=== PATIENT | female | born 1950 | race Caucasian/White ===

== ENCOUNTER 2021-07-07 00:01 | Inpatient (IN) | payer OTHER, SELFPAY ==
[2021-07-06 23:59] VITALS: BP 132/84; PULSE 110; RESP 25; TEMP 36.4; O2SAT 97
[2021-07-07] VITALS (106 sets, daily range): BP systolic 83–153; BP diastolic 49–95; PULSE 56–112; RESP 14–31; TEMP 36.7; O2SAT 95–100; BMI 28.0
--- NOTE | ~2021-07-07 | US_ITS ---
US retroperitoneal comp 07/12/2021 10:31 Procedure: Realtime transabdominal ultrasound of the kidneys and bladder. Indication: Renal failure Comparison: No prior studies for comparison. Findings: There is a hyperechoic area in the right kidney measuring 6 mm, possibly nonobstructing ron al stone. Recommend correlation with CT as clinically indicated. There is a left renal cyst measuring 1.5 cm. The right kidney measures 8.2 cm and left kidney measures 8.3 cm. Bladder within normal gee its. Impression: 1: Hyperechoic area in the right kidney, possibly renal stone. Consider correlation with CT. No hydro nephrosis. Reviewed, dictated and finalized at location A. Impression: 1: Hyperechoic area in the right kidney, possibly renal stone. Consider correla tion with CT. No hydronephrosis.
--- NOTE | ~2021-07-07 | XR_ITS ---
EXAMINATION: XR chest 1V portable DATE: 07/07/2021 01:03 INDICATION: Cough and shortness of breath. TECHNIQUE: A single frontal view of the chest was obtained. COMPARISON: None. FINDINGS: There is mild scarring at the lung apices. There are airspace opacities in right perihilar region. There is mild atelectasis versus scarring at the lung bases. No pneumothorax or pleural effus ion. The heart size is normal. Median sternotomy wires and mediastinal surgical clips are seen, likel y from prior coronary artery bypass grafting. IMPRESSION: 1. Airspace opacities in right perihilar region, consistent with pneumonia. 2. Mild scarring at the lung apices and mild atelectasis versus scarring at the lung bases. Reviewed, dictated and finalized at location A.
--- NOTE | ~2021-07-07 | NM_ITS ---
EXAMINATION: NM pulmonary perfusion DATE: 07/08/2021 12:37 INDICATION: Shortness of breath. TECHNIQUE: 5.5 mCi Tc-99m MAA was administered intravenously for perfusion images. Scintigraphic zuly ges of the chest were obtained. COMPARISON: Chest single view 07/07/2021 FINDINGS: Perfusion images show large defects in the basilar lower lobes, left worse than right.. IMPRESSION: 1. Nondiagnostic (intermediate probability for pulmonary embolism). Reviewed, dictated and finalized at location A.
--- NOTE | 2021-07-07 00:04 | ECG_ITS ---
Measurements Intervals [place] Rate: 109 P: 74 IA: 184 QRS: 81 QRSD: 110 T: 58 QT: 360 QTc: 487 Interpretive Statements SINUS TACHYCARDIA BORDERLINE ST-T WAVE ABNORMALITY- INF/LAT LEADS BASELINE ARTIFACT- I, II, III, AVR, AVL, AVF, V1-V6 ABNORMAL ECG Electronically Signed On 07-07-2021 5:23:34 CDT by Wei Richardson D.O.
--- NOTE | 2021-07-07 00:14 | ED.GENADULT ---
HPI - General Adult General Chief complaint: Shortness of Breath/Dyspnea Stated complaint: Shortness of breath Time Seen by Provider: 07/07/21 00:03 Source: RN notes reviewed History of Present Illness HPI narrative: Patient presents emergency department from home via EMS for shortness of breath. Patient has a history of COPD is normally on 3 L nasal cannula. When EMS arrived the patient was found to be satting in the 70s on her nebulizer treatment. Patient states she began to feel short of breath yesterday with a cough this been nonproductive she denies any fevers or chills chest pain abdominal pain nausea vomiting patient states she has had both of her Covid vaccination patient was given a breathing treatment and Solu-Medrol in route by EMS Related Data Allergies Allergy/AdvReac Type Severity Reaction Status Date / Time milk Allergy Vomiting Verified 07/07/21 00:14 quinidine Allergy Unknown Verified 07/07/21 00:14 Review of Systems Review of Systems: Gen.: Denies fevers or chills ENT: Denies congestion Respiratory: See HPI CV: Denies chest pain or palpitations GI: Denies abdominal pain nausea, emesis or diarrhea Musculoskeletal: Denies back pain or muscle pain Neuro: Denies numbness, tingling, weakness or focal weakness Skin: Denies rash Except as documented, all other systems reviewed and negative [facility] Past Medical History Medical History (Updated 07/07/21 @ 02:59 by Jermaine Roland DO) CHF (congestive heart failure) Chronic kidney disease, stage 4 (severe) COPD (chronic obstructive pulmonary disease) Social History Social History (Updated 07/07/21 @ 00:21 by Jermaine Roland DO) Smoking status: Former smoker Exam Narrative: APPEARANCE: Moderate respiratory stress sitting upright HEENT: Normocephalic, atraumatic OMM RESPIRATORY: Moderate respiratory distress and upright in bed speaking short phrases wheezing throughout the bilateral lung burkett decreased breath sounds in the bases CARDIOVASCULAR: Regular rate and rhythm without murmurs rubs or gallops. ABDOMINAL: Soft, nontender, nondistended, no rebound or guarding MUSCULOSKELETAl: Moves all extremities. No clubbing, cyanosis or edema. Bilateral calves soft and nontender NEURO: Awake and alert. Following commands, speech normal, no focal deficits SKIN:: Warm, dry. Normal Color PSYCHIATRIC: Normal affect/mood, Course Course Emergency Course: Patient's breathing has improved on BiPAP repeat lung exam still does show wheezing throughout lung burkett Called and discussed with Dr. Carreon presentation work-up agrees with admission at this time Discussed with patient and family results of workup and diagnosis. Discussed need for admission. Patient and family understand and agree to current treatment plan Vital Signs Vital signs: Vital Signs Temperature 97.6 F 07/06/21 23:59 Pulse Rate 110 H 07/06/21 23:59 Respiratory Rate 25 H 07/06/21 23:59 Blood Pressure 132/84 07/06/21 23:59 Pulse Oximetry 97 07/06/21 23:59 Temperature 97.6 F 07/06/21 23:59 Pulse Rate 78 07/07/21 02:45 Respiratory Rate 18 07/07/21 02:45 Blood Pressure 110/66 07/07/21 02:16 Pulse Oximetry 97 07/07/21 02:45 Medical Decision Making Vital Signs Vital Signs: Vital Signs Temperature 97.6 F 07/06/21 23:59 Pulse Rate 110 H 07/06/21 23:59 Respiratory Rate 25 H 07/06/21 23:59 Blood Pressure 132/84 07/06/21 23:59 Pulse Oximetry 97 07/06/21 23:59 Temperature 97.6 F 07/06/21 23:59 Pulse Rate 78 07/07/21 02:45 Respiratory Rate 18 07/07/21 02:45 Blood Pressure 110/66 07/07/21 02:16 Pulse Oximetry 97 07/07/21 02:45 Lab Data Result diagrams: 07/07/21 00:20 07/07/21 00:20 Labs: Lab Results 07/07/21 07/07/21 07/07/21 Range/Units 00:20 00:20 00:20 WBC 10.3 H (4.5-10.0) K/mm3 RBC 3.44 L (4.2-5.4) M/mm3 Hgb 9.7 L (12.0-15.0) g/dL Hct 33.2 L (37.0-47.0) % MCV 96
[2021-07-07 00:26] LABS: Alveolar/Arterial O2 Gradient 92.2 mmHg; Base Excess ABG 1.9 mEq/l (+/-2.0); Fractional Inspired Oxygen 36 %; HCO3 ABG 29.9 mEq/l (22.0-26.0); Oxygen Content ABG 14.6 %vol (16.0-22.0); Oxygen Saturation ABG 95.2 % (95.0-100.0); Oxyhemoglobin 95.7 % THb (90.0-100.0); PO2 ABG 87.8 mmHg (80.0-100.0); PO2 FiO2 Ratio Arterial Blood 2.44 %; Total Hemoglobin 10.8 g/dL (12.0-18.0)
[2021-07-07 00:27] LABS: Basophils Percent Auto 0.4 % (0.2-1.2); Eosinophils Absolute Auto 1.1 K/mm3 (0-0.3); Eosinophils Percent Auto 10.5 % (0-4.4); Hematocrit 33.2 % (37.0-47.0); Hemoglobin 9.7 g/dL (12.0-15.0); Immature Granulocyte Absolute 0.06 K/mm3 (0.00-0.031); Immature Granulocyte Percent A 0.6 % (0-0.5); Lymphocytes Absolute Auto 2.98 K/mm3 (0.9-3.2); Mean Corpuscular HGB Conc 29.2 g/dl (32-36); Mean Corpuscular Hemoglobin 28.2 pg (26-34); Mean Corpuscular Volume 96.5 fl (80-100); Mean Platelet Volume 9.3 fl (7.4-10.4); Monocytes Absolute Auto 0.6 K/mm3 (0.1-0.6); Monocytes Percent Auto 6.1 % (2.6-8.5); Neutrophils Absolute Auto 5.5 K/mm3 (1.3-6.7); Neutrophils Percent Auto 53.4 % (45.5-73.1); Platelet Count Result 283 k/mm3 (150-375); Red Blood Count 3.44 M/mm3 (4.2-5.4); Red Cell Distribution Width 13.2 % (11.5-14.5); White Blood Count 10.3 K/mm3 (4.5-10.0)
[2021-07-07 00:28] LABS: pH ABG 7.274 (7.350-7.450)
[2021-07-07 00:29] LABS: Device NASAL CANNULA; Modified Allen's Test Pass; PCO2 ABG 66.1 mmHg (35.0-45.0); Site Drawn RIGHT RADIAL
[2021-07-07 00:37] LABS: Anion Gap 11 mmol/L (8-16); Blood Urea Nitrogen 23 mg/dL (7-17); Calcium 9.1 mg/dL (8.4-10.2); Carbon Dioxide 27 mmol/L (22-30); Chloride 95 mmol/L (98-107); Estimated Glomerular Filt Rate 17; Glucose 247 mg/dL (65-110); Lactic Acid Reflex 1.6 mmol/L (0.7-2.1); Potassium 4.1 mmol/L (3.4-5.0); Sodium 133 mmol/L (137-145)
[2021-07-07 00:40] LABS: Prothrombin Time 12.6 Seconds (11.1-14.7)
[2021-07-07 00:41] LABS: Partial Thromboplastin Time 24.1 SECONDS (22.3-36.8)
[2021-07-07] MEDS: ALBUTEROL SULFATE NEB 2.5 MG/0.5 ML INH 5 MG INHALATION ×5 (00:45→20:05)
[2021-07-07] MEDS: IPRATROPIUM BR 0.02% INH SOLN 0.5 MG/2.5 ML VIAL INHALATION ×5 (00:46→20:05)
[2021-07-07 00:49] LABS: NT Pro B Type Natriuretic Pept 557 pg/mL (5-100)
[2021-07-07 01:45] LABS: Alveolar/Arterial O2 Gradient 101.7 mmHg; Base Excess ABG 3.1 mEq/l (+/-2.0); Device NON-INVASIVE VENT; Fractional Inspired Oxygen 35 %; HCO3 ABG 29.9 mEq/l (22.0-26.0); Modified Allen's Test Pass; Oxygen Content ABG 14.3 %vol (16.0-22.0); Oxygen Saturation ABG 95.1 % (95.0-100.0); Oxyhemoglobin 95.5 % THb (90.0-100.0); PO2 ABG 81.6 mmHg (80.0-100.0); PO2 FiO2 Ratio Arterial Blood 2.33 %; Site Drawn RIGHT RADIAL; Total Hemoglobin 10.6 g/dL (12.0-18.0); pH ABG 7.337 (7.350-7.450)
[2021-07-07 01:46] LABS: Non-Invasive Expiratory Pressure 6 CMH2O; Non-Invasive Inspiratory Pressure 12 CMH2O; Non-Invasive Vent Rate 12 /MIN
[2021-07-07] MEDS: SODIUM CHLORIDE 0.9% IV 1,000 ML 999 ML IV CONT (01:57)
[2021-07-07 03:01] LABS: Add Urine Microscopic? YES; Appearance Urine Cloudy (Clear); Bacteria Urine Trace /hpf; Bilirubin Urine Negative (Negative); Blood Urine 2+ (Negative); Color Urine Yellow (Yellow); Glucose Urine UA Negative (Negative); Ketones Urine Negative (Negative); Leukocyte Esterase Ur Negative LEU/UL (Negative); Mucus Urine Rare /lpf; Nitrate Urine Negative (Negative); Protein Urine 1+ mg/dL (Negative); RBC Urine 0-2 /hpf (0-2); Specific Grav Ur 1.014 (1.001-1.035); Squamous Epithelial Cell Urine Few /hpf (Few); Urobilinogen Urine Negative mg/dL (<2.0); WBC Urine 0-3 /hpf
--- NOTE | 2021-07-07 04:22 | PM.IMHP ---
H&P: HPI History of Present Illness Date/Time: 07/07/21 04:22 Chief Complaint: Shortness of breath Narrative: This is a 70-year-old female with past medical history significant for COPD/emphysema, chronic hypoxic respiratory failure on 3 L by nasal cannula of supplemental oxygen at home. Patient arrived to emergency room via EMS after she called due to worsening shortness of breath and low pulse ox, when EMS arrived to her house she was found to be saturating in the 70s% while using her nebulizer machine. Patient states that she has had progressively worsening shortness of breath for the last 2-3 days with cough and sputum production, she denies any fevers rigors or chills, no nausea, no vomiting, no diarrhea, no abdominal pain has had decreased appetite. Preliminary workup was significant for ABG with a pCO2 of 57, chest x-ray with infiltrates. While in the emergency room patient require BiPAP at the time of my visit patient was still on BiPAP. Patient usually gets her care at [facility]. Review of Systems Review of Systems: Worsening shortness of breath, low pulse ox. Constitutional: Constitutional: Denies chills, Denies fever(s) and Denies malaise Eyes: Eyes: Denies change in vision ENT: Denies nasal congestion, Denies nasal discharge and Denies nasal obstruction Cardiovascular: Cardiovascular: Denies irregular heart rhythm, Denies leg edema, Denies lightheadedness and Denies palpitations Respiratory: Respiratory: Reports chest congestion, Reports cough, Reports dyspnea, Reports dyspnea on exertion and Reports wheezing Gastrointestinal: Gastrointestinal: Denies abdominal pain, Denies diarrhea, Denies nausea and Denies vomiting Genitourinary: Genitourinary: Reports no additional female genitourinary complaints Musculoskeletal: Musculoskeletal: Reports no additional musculoskeletal complaints Neurologic: Reports system reviewed and no additional complaints, except as documented Psychiatric: Psychiatric: Reports no additional psychiatric complaints Endocrine: Endocrine: Reports no additional endocrine complaints Hematologic/Lymphatic: Hematologic/Lymphatic: Reports no additional hematologic/lymphatic complaints Allergic/Immunologic: Allergic/Immunologic: Reports no additional allergic/immunologic complaints [facility] Past Medical History Medical History (Updated 07/07/21 @ 02:59 by Jermaine Roland DO) CHF (congestive heart failure) Chronic kidney disease, stage 4 (severe) COPD (chronic obstructive pulmonary disease) Social History Social History (Updated 07/07/21 @ 00:21 by ANDREA Fernandez Smoking status: Former smoker Meds Home Medications and Allergies Allergies Allergy/AdvReac Type Severity Reaction Status Date / Time milk Allergy Vomiting Verified 07/07/21 00:14 quinidine Allergy Unknown Verified 07/07/21 00:14 Vital Signs Vital Signs - 24 hr 07/06/21 23:59 07/07/21 00:04 07/07/21 00:05 Temperature 97.6 F Pulse Rate 110 H 112 H 111 H Respiratory Rate 25 H 22 H 25 H Blood Pressure 132/84 132/84 Pulse Oximetry 97 07/07/21 00:08 07/07/21 00:15 07/07/21 00:16 Temperature Pulse Rate 95 94 Respiratory Rate Blood Pressure 107/70 Pulse Oximetry 98 07/07/21 00:30 07/07/21 00:31 07/07/21 00:35 Temperature Pulse Rate 79 82 Respiratory Rate 17 22 H Blood Pressure 85/61 L Pulse Oximetry 98 07/07/21 00:40 07/07/21 00:45 07/07/21 00:46 Temperature Pulse Rate 76 79 79 Respiratory Rate 18 19 17 Blood Pressure Pulse Oximetry 07/07/21 01:00 07/07/21 01:15 07/07/21 01:22 Temperature Pulse Rate 88 76 75 Respiratory Rate 19 20 19 Blood Pressure 85/60 L Pulse Oximetry 07/07/21 01:30 07/07/21 01:31 07/07/21 01:45 Temperature Pulse Rate 72 73 71 Respiratory Rate 18 19 15 Blood Pressure 83/52 L Pulse Oximetry 100 07/07/21 01:46 07/07/21 01:47 07/07/21 01:58 Temperature Pulse Rate 72 71 Respirat
[2021-07-07] MEDS: methylPREDNISolone SOD SUCC 125 MG VIAL 60 MG IV PUSH ×4 (09:38→23:56)
--- NOTE | 2021-07-07 12:22 | PC.NURSE ---
nurse informed that triage nurse rec'd call from family reporting that pt needs nursing assist. nurse to room at this time
[2021-07-07] MEDS: ONDANSETRON INJ 4 MG/2 ML VIAL (12:28)
[2021-07-07 13:07] LABS: Troponin I 0.663 ng/mL (0.000-0.034)
--- NOTE | 2021-07-07 17:25 | PM.IMPN ---
Progress Note: A&P Assessment and Plan (1) Acute on chronic respiratory failure with hypoxia and hypercapnia: Code(s): J96.21 - Acute and chronic respiratory failure with hypoxia; J96.22 - Acute and chronic respiratory failure with hypercapnia Status: Acute Assessment and Plan: Currently on BiPAP Continues pulse ox Breathing treatments Systemic steroids (2) Community acquired pneumonia: Code(s): J18.9 - Pneumonia, unspecified organism Status: Acute Assessment and Plan: Started on Rocephin and Zithromax Await blood culture Supportive care (3) Chronic kidney disease, stage 4 (severe): Code(s): N18.4 - Chronic kidney disease, stage 4 (severe) Status: Acute Assessment and Plan: No prior values to compare Continue to monitor BUN is 27 creatinine is 2.7 Baseline creatinine around 2 follows with heel room supervisor in [place] (4) COPD (chronic obstructive pulmonary disease): Code(s): J44.9 - Chronic obstructive pulmonary disease, unspecified Status: Acute Assessment and Plan: Continue breathing treatments Supportive care (5) Elevated troponin: Code(s): R77.8 - Other specified abnormalities of plasma proteins Status: Acute Assessment and Plan: troponin bumped up to 0.663 from 0.020. Cardiology consultation. No active chest pain. Add aspirin continue carvedilol Recheck troponin next Will get lung scan History of coronary artery disease with status post stents 7 years back follows with building guard deputy sheriff at [place] (6) DVT prophylaxis: Code(s): Z29.9 - Encounter for prophylactic measures, unspecified Status: Acute Assessment and Plan: start heparin subQ Subjective Date/time seen: 07/07/21 17:25 Interval history: on BiPAP feels a little better continues to cough Review of Systems Review of Systems: - CONSTITUTIONAL: Denies weight loss, fever and chills. - HEENT: Denies changes in vision and hearing - RESPIRATORY: reports SOB and cough. - CV: Denies palpitations and CP. - GI: Denies abdominal pain, nausea, vomiting and diarrhea. - : Denies dysuria and urinary frequency. - MSK: Denies myalgia and joint pain. - SKIN: Denies rash and pruritus. - NEUROLOGICAL: Denies headache and syncope. - PSYCHIATRIC: Denies recent changes in mood. Denies anxiety and depression. All systems reviewed & are unremarkable except as noted in HPI and below Constitutional: Constitutional: Reports fatigue and Reports weakness Neurologic: Reports weakness Endocrine: Endocrine: Reports fatigue Exam Narrative: Patient is laying in gurney BiPAP on. Const: General: comfortable, no acute distress, well developed, alert, awake and ill appearing acutely Nutritional Appearance: average body habitus Orientation/consciousness: patient oriented x3 HENMT: Head: normal to inspection, normocephalic and atraumatic Ears: hearing grossly normal bilaterally General nose exam: Normal external nose present Face and sinus: normal facial exam and other (BiPAP on) Eyes: General: appearance normal, both eyes and all related structures Alignment and Position: alignment normal Sclera: sclerae normal Pupils: Equal, round and reactive pupils present EOM: EOMs intact bilaterally Neck: Neck: normal visual inspection, full ROM, no lymphadenopathy, supple and no JVD Thyroid: thyroid normal Lymphatic: no lymphadenopathy noted Resp: Effort & Inspection: normal respiratory effort and able to speak in complete sentences Auscultation: rhonchi and wheezes Cardio: Jugular venous distension: no JVD Rate: regular rate Rhythm: regular rhythm Heart sounds: S1 normal heart sound present and S2 normal heart sound present : General: Yes deferred Skin: Rashes: no rashes Wounds: no wounds Neuro: General: patient oriented x3 and CN's II-XI intact bilaterally Cranial nerves: Yes CN's II-XII intact bilaterally and Yes Equal, round and reactive pupils
--- NOTE | 2021-07-07 19:00 | PC.NURSE ---
assumed care of pt at this time. Report from Cat RN.
[2021-07-07 19:11] LABS: Troponin I 0.638 ng/mL (0.000-0.034)
--- NOTE | 2021-07-07 23:16 | PC.NURSE ---
meds not given due to this RN being with an unstable pt. Updated LENARD Coburn.
--- NOTE | 2021-07-07 23:36 | ADMGEN ---
This patient, Leticia Mullins, was admitted to IMU Room 232-01. Patient/family oriented to hospital policies and general routines including ID bracelet, bed and alarms, visiting hours, pain management, procedures, bathroom and other care routines, personal items, smoking policy, room service/diet, and visiting hours. Information on how to activate the Rapid Response Team has been discussed. Patient/Family are encouraged to report perceived risks to care and to ask questions if they do not understand what they are told or what they should do.
[2021-07-07] MEDS: carvediloL 12.5 MG TABLET PO (23:57)
[2021-07-08] VITALS (23 sets, daily range): BP systolic 95–145; BP diastolic 48–69; PULSE 63–92; RESP 16–24; TEMP 36.2–36.9; O2SAT 92–100
--- NOTE | 2021-07-08 | ECHO_ITS ---
Patient Info Name: Leticia Mullins Age: 70 years : 1950 Gender: Female Ht: 62 in Wt: 160 lbs BSA: 1.81 m2 HR: 87 bpm BP: 134 / 48 mmHg Heart Rhythm: Sinus Rhythm Exam Date: 07/08/2021 10:46 AM Exam Location: [facility] Pulmonary Patient Status: Inpatient Admit Date: 07/07/2021 Staff Ordering Physician: Endy Falk MD Rap Artist: Nathanael Canales, JACKELIN, RT Attending Provider: Lindsay Bello MD Exam Type: CA echo doppler color flow Study Info Indications R06.02 - Shortness of breath I50.9 - Heart failure, unspecified Complete two-dimensional, color flow and Doppler transthoracic echocardiogram is performed. Strain analysis performed. Summary 1. Complete two-dimensional, color flow and Doppler transthoracic echocardiogram is performed. 2. Normal left ventricular size with mild concentric left ventricular hypertrophy. Overall good left ventricular systolic function with an estimated ejection fraction of 60-65%. There was basal inferoseptal lateral hypokinesis present. Diastolic dysfunction is normal. Global longitudinal strain was mildly decreased at -16% consistent with a degree of systolic dysfunction. 3. Left atrial chamber dimension is moderately enlarged. 4. There is mild aortic valve regurgitation. 5. There is mild mitral valve regurgitation. 6. Normal sinus rhythm. Left Ventricle Left ventricular chamber dimension is normal. Left ventricular systolic function is normal, estimated at 60-65%. There is mildly increased left ventricular wall thickness. Left ventricular septal wall motion is normal. The left ventricular diastolic function is normal. Right Ventricle Right ventricular chamber dimension is normal. Right ventricular systolic function is normal. Left Atria Left atrial chamber dimension is moderately enlarged. Right Atria Right atrial chamber dimension is normal. Aortic Valve The aortic valve is trileaflet. There is no aortic valve sclerosis. There is no aortic valve stenosis. There is mild aortic valve regurgitation. Pulmonic Valve The pulmonic valve is normal. There is no pulmonic valve stenosis. There is no pulmonic regurgitation. Mitral Valve The mitral valve has normal leaflets. There is no mitral valve stenosis. There is mild mitral valve regurgitation. Tricuspid Valve The tricuspid valve leaflets are normal. There is no significant tricuspid valve stenosis. There is no tricuspid valve regurgitation. No pulmonary hypertension, estimated pulmonary arterial systolic pressure is Empty. Pericardium/Pleural The pericardium appears normal. There is no pericardial effusion. Inferior Vena Cava Normal inferior vena cava with >50% collapse upon inspiration consistent with Empty right atrial pressure, Empty. Aorta The aortic root size at the sinus of Valsalva is normal. The prox ascending aorta size is normal. Left Ventricular Outflow Tract Name Value Normal LVOT 2D LVOT Diameter 2.0 cm LVOT Doppler LVOT Peak Gradient 4 mmHg LVOT Mean Gradient 2 mmHg LVOT VTI
[2021-07-08] MEDS: ALBUTEROL SULFATE NEB 2.5 MG/0.5 ML INH 5 MG INHALATION ×4 (02:57→20:59)
[2021-07-08] MEDS: IPRATROPIUM BR 0.02% INH SOLN 0.5 MG/2.5 ML VIAL INHALATION ×4 (02:57→21:00)
[2021-07-08] MEDS: methylPREDNISolone SOD SUCC 125 MG VIAL 60 MG IV PUSH ×3 (05:49→18:38)
[2021-07-08 06:07] LABS: Basophils Percent Auto 0.1 % (0.2-1.2); Hematocrit 28.9 % (37.0-47.0); Hemoglobin 8.5 g/dL (12.0-15.0); Immature Granulocyte Absolute 0.09 K/mm3 (0.00-0.031); Immature Granulocyte Percent A 0.6 % (0-0.5); Lymphocytes Absolute Auto 0.92 K/mm3 (0.9-3.2); Lymphocytes Percent Auto 6.5 % (18.3-44.2); Mean Corpuscular HGB Conc 29.4 g/dl (32-36); Mean Corpuscular Hemoglobin 27.8 pg (26-34); Mean Corpuscular Volume 94.4 fl (80-100); Mean Platelet Volume 9.8 fl (7.4-10.4); Monocytes Absolute Auto 0.5 K/mm3 (0.1-0.6); Monocytes Percent Auto 3.3 % (2.6-8.5); Neutrophils Absolute Auto 12.7 K/mm3 (1.3-6.7); Neutrophils Percent Auto 89.5 % (45.5-73.1); Platelet Count Result 249 k/mm3 (150-375); Red Blood Count 3.06 M/mm3 (4.2-5.4); Red Cell Distribution Width 13.3 % (11.5-14.5); White Blood Count 14.2 K/mm3 (4.5-10.0)
[2021-07-08 06:15] LABS: Alanine Aminotransferase 12 U/L (4-35); Albumin Level 3.7 g/dL (3.5-5.1); Alkaline Phosphatase 63 U/L (38-126); Anion Gap 7 mmol/L (8-16); Aspartate Amino Transferase 26 U/L (14-36); Bilirubin,Total 0.1 mg/dL (0.2-1.3); Blood Urea Nitrogen 34 mg/dL (7-17); Calcium 9.1 mg/dL (8.4-10.2); Carbon Dioxide 27 mmol/L (22-30); Chloride 99 mmol/L (98-107); Estimated CRCL calculation 20 ml/min; Estimated Glomerular Filt Rate 22; Glucose 156 mg/dL (65-110); Potassium 4.7 mmol/L (3.4-5.0); Sodium 133 mmol/L (137-145)
[2021-07-08] MEDS: carvediloL 12.5 MG TABLET PO ×2 (08:50→20:18)
[2021-07-08] MEDS: CLOPIDOGREL BISULFATE 75 MG TABLET PO (08:51)
[2021-07-08 08:55] LABS: Anisocytosis 1+ (NORMAL); Hypochromasia 2+ (NORMAL); Platelet Estimate Adequate (Adequate); Poikilocytosis 1+ (NORMAL)
--- NOTE | 2021-07-08 11:22 | PM.IMPN ---
Progress Note: A&P Assessment and Plan (1) Acute on chronic respiratory failure with hypoxia and hypercapnia: Code(s): J96.21 - Acute and chronic respiratory failure with hypoxia; J96.22 - Acute and chronic respiratory failure with hypercapnia Status: Acute (2) Community acquired pneumonia: Code(s): J18.9 - Pneumonia, unspecified organism Status: Acute (3) Chronic kidney disease, stage 4 (severe): Code(s): N18.4 - Chronic kidney disease, stage 4 (severe) Status: Acute Assessment and Plan: (4) COPD (chronic obstructive pulmonary disease): Code(s): J44.9 - Chronic obstructive pulmonary disease, unspecified Status: Acute (5) Elevated troponin: Code(s): R77.8 - Other specified abnormalities of plasma proteins Status: Acute (6) DVT prophylaxis: Code(s): Z29.9 - Encounter for prophylactic measures, unspecified Status: Acute Assessment and Plan: start heparin subQ Additional Plan Currently on BiPAP Continues pulse ox Breathing treatments Systemic steroids Started on Rocephin and Zithromax Await blood culture Supportive care No prior values to compare Continue to monitor BUN is 27 creatinine is 2.7 Baseline creatinine around 2 follows with alum plant supervisor in [place] troponin bumped up to 0.663 from 0.020. Cardiology consultation. No active chest pain. Add aspirin continue carvedilol Recheck troponin next Will get lung scan History of coronary artery disease with status post stents 7 years back follows with channel business manager at [place] troponin bumped up to 0.663 from 0.020. Cardiology consultation. No active chest pain. 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 and pantoprazole added to MAR cont on abx pt off BiPAP and back to her normal home amount of 3L NC ATC cont supportive care CXR in am am labs anticipate dc home in a day or 2 Subjective Date/time seen: 07/08/21 11:22 complains of coughing worse when lying down and upset stomach w nausea sad due to acute on chronic illness pt reassured Exam Narrative: GEN: NAD, AAOx3, cooperative, obese HEENT: NCAT, MMM, EOMI Neck: no JVD Heart: S1S2 RRR Lungs: decreased breath sounds no use of accessory muscles Abd: soft, NT, ND, bowel sounds normoactive Ext: moves all, no cyanosis, no clubbing, no edema Neuro: slow cognition, moves all extremities equally, unsteady gait Psych: mood reduced, affect congruent Objective Data Vital Signs Vital Signs: Vital Signs - 24 hr 07/07/21 11:31 07/07/21 11:46 07/07/21 12:01 Temperature Pulse Rate 91 91 93 Respiratory Rate 20 14 26 H Blood Pressure 153/76 H 119/74 124/72 Pulse Oximetry 07/07/21 12:36 07/07/21 14:32 07/07/21 14:45 Temperature Pulse Rate 97 92 89 Respiratory Rate 19 19 18 Blood Pressure 143/63 H Pulse Oximetry 100 96 07/07/21 14:54 07/07/21 15:01 07/07/21 17:01 Temperature Pulse Rate 89 Respiratory Rate 18 Blood Pressure 142/70 H 122/58 L Pulse Oximetry 96 07/07/21 19:48 07/07/21 19:51 07/07/21 19:55 Temperature Pulse Rate 94 92 Respiratory Rate 19 18 21 H Blood Pressure 124/71 124/71 Pulse Oximetry 95 07/07/21 20:00 07/07/21 20:01 07/07/21 20:05 Temperature Pulse Rate 91 93 93 Respiratory Rate 20 21 H 20 Blood Pressure Pulse Oximetry 07/07/21 20:15 07/07/21 20:30 07/07/21 20:45 Temperature Pulse Rate 92 91 99 Respiratory Rate 21 H 20 18 Blood Pressure Pulse Oximetry 07/07/21 21:00 07/07/21 21:15 07/07/21 21:30 Temperature Pulse Rate 96 92 91 Respiratory Rate 20 31 H 22 H Blood Pressure 122/70 Pulse Oximetry 07/07/21 21:45 07/07/21 22:00 07/07/21 22:15 Temperat
--- NOTE | 2021-07-08 12:46 | PM.CNCAR ---
Assessment and Plan Additional Plan This is a 70-year-old woman with a slightly elevated troponin level this is not an example of acute coronary syndrome. Her troponin is elevated because of hypoxemia and anemia. The combination of hypoxemia and a hemoglobin of 8 result in demand myocardial ischemia and modestly elevated troponin. As I have said many times I would rec a not drawing troponins in this type of situation but this seems to occur very frequently. She does not merit an ischemia workup in this situation. She already has active follow-up scheduled with her long established commercial green retrofit architect at [facility] and following discharge this should be continued. Tristen Monsivais MD [facility] History of Present Illness History of Present Illness Consult date/time: 07/08/21 12:46 Reason For Visit: Acute Respiratory Failure w/Hypoxia,Hypercapnea,Pn Narrative: This is a pleasant 70-year-old lady I am seeing at the request of the hospitalist because of troponinemia. The patient is not describing any symptoms of myocardial ischemia and came to this hospital yesterday with worsening baseline shortness of breath. She has a history of severe chronic lung disease which has to do with about 40 years of heavy cigarette smoking at 2-2 and half packs per day. Fortunately she discontinued this about 4 years ago. She normally receives her medical care at [facility] in has both wincher and commercial green retrofit architect up there. She had a baseline is on home oxygen at 3 L per day and was experiencing an increasing shortness of breath. She called an ambulance and was brought here because it is closer to her home in [place]. She was hypoxemic hypercarbic and had a respiratory acidosis arrival. She was placed on BiPAP and bronchodilator therapy and has done well. She is no longer significantly dyspneic at this time. She was not reporting any chest pain pressure or heaviness. Of troponin levels were done following admission for reasons that are not obvious and they were slightly elevated prompting this consultation. The patient is known to have coronary artery disease for many years and follows with Dr. Steel at [facility]. She underwent a bypass operation in 2009 with CATHY graft to LAD as well as vein grafts to the circumflex and right coronary. In subsequent follow-up in 2014 her vein grafts were found to be totally closed and she underwent percutaneous revascularization of the circumflex with stenting, rotational atherectomy. I believe she has a CASHIER RECEPTIONIST of the right coronary artery according to the notes that are in the record. She has not had a cardiac catheterization procedure done since 2019 but has been stable. She is known to have chronic kidney disease with a creatinine that varies between 1.7 and 2.9. Her past medical history is otherwise remarkable for her significant peripheral vascular disease a history of Bañuelos's esophagus hypertension and May-Thurner syndrome. Review of Systems Constitutional: Constitutional: Reports lethargy Eyes: Eyes: Reports no additional eye complaints ENT: Reports system reviewed and no additional complaints, except as documented Cardiovascular: Cardiovascular: Reports no additional cardiovascular complaints Respiratory: Respiratory: Reports dyspnea and Reports wheezing Gastrointestinal: Gastrointestinal: Reports no additional gastrointestinal complaints Musculoskeletal: Musculoskeletal: Reports no additional musculoskeletal complaints Integumentary/Breasts: Skin/Breast: Reports system reviewed and no additional complaints, except as docu Psychiatric: Psychiatric: Reports no additional psychiatric complaints Endocrine: Endocrine: Reports no additional endocrine complaints Hematologic/Lymphatic: Hematologic/Lymphatic: Reports no additional hematologic/lymphatic complaints Allergic/Immunologic: Allergic/Immunologic: Reports no additional allergic/immunologic complaints PMFSH Past Medical History Medical
[2021-07-08] MEDS: SUCRALFATE SUSP 100 MG/ML 10 ML UDC 1000 MG PO ×3 (12:49→20:18)
[2021-07-08] MEDS: ASPIRIN 81 MG ENTERIC TABLET PO (12:49)
[2021-07-08] MEDS: HEPARIN SODIUM 5,000 UNITS/ML VIAL 5000 UNITS SUB-Q (12:50)
[2021-07-08] MEDS: busPIRone HCL 2.5 MG, busPIRone HCL 5 MG 7.5 MG PO (18:38)
[2021-07-08] MEDS: SACUBITRIL/VALSARTAN 12-13 MG TABLET 1 TAB PO (20:18)
[2021-07-08] MEDS: QUEtiapine FUMARATE 25 MG TABLET PO (20:18)
[2021-07-08] MEDS: PANTOPRAZOLE SODIUM IV 40 MG VIAL IV PUSH (20:18)
[2021-07-08] MEDS: MIRTAZAPINE 30 MG TABLET PO (20:18)
[2021-07-09] VITALS (23 sets, daily range): BP systolic 102–139; BP diastolic 40–77; PULSE 59–89; RESP 12–24; TEMP 36.2–37.5; O2SAT 89–100
[2021-07-09] MEDS: methylPREDNISolone SOD SUCC 125 MG VIAL 60 MG IV PUSH ×5 (02:04→23:53)
[2021-07-09] MEDS: IPRATROPIUM BR 0.02% INH SOLN 0.5 MG/2.5 ML VIAL INHALATION ×4 (02:24→20:42)
[2021-07-09] MEDS: ALBUTEROL SULFATE NEB 2.5 MG/0.5 ML INH 5 MG INHALATION ×4 (02:24→20:42)
[2021-07-09] MEDS: SUCRALFATE SUSP 100 MG/ML 10 ML UDC 1000 MG PO ×4 (05:45→23:50)
[2021-07-09 07:00] LABS: Basophils Percent Auto 0.1 % (0.2-1.2); Hematocrit 29.9 % (37.0-47.0); Immature Granulocyte Absolute 0.11 K/mm3 (0.00-0.031); Immature Granulocyte Percent A 0.8 % (0-0.5); Lymphocytes Absolute Auto 0.68 K/mm3 (0.9-3.2); Lymphocytes Percent Auto 4.7 % (18.3-44.2); Mean Corpuscular HGB Conc 30.1 g/dl (32-36); Mean Corpuscular Volume 92.9 fl (80-100); Monocytes Absolute Auto 0.5 K/mm3 (0.1-0.6); Monocytes Percent Auto 3.3 % (2.6-8.5); Neutrophils Absolute Auto 13.1 K/mm3 (1.3-6.7); Neutrophils Percent Auto 91.1 % (45.5-73.1); Platelet Count Result 286 k/mm3 (150-375); Red Blood Count 3.22 M/mm3 (4.2-5.4); Red Cell Distribution Width 13.2 % (11.5-14.5); White Blood Count 14.3 K/mm3 (4.5-10.0)
[2021-07-09 07:22] LABS: Albumin Level 3.8 g/dL (3.5-5.1); Anion Gap 6 mmol/L (8-16); Blood Urea Nitrogen 44 mg/dL (7-17); Carbon Dioxide 29 mmol/L (22-30); Chloride 99 mmol/L (98-107); Estimated CRCL calculation 17 ml/min; Estimated Glomerular Filt Rate 18; Glucose 138 mg/dL (65-110); Phosphorus 3.8 mg/dL (2.5-4.5); Potassium 4.8 mmol/L (3.4-5.0); Sodium 134 mmol/L (137-145)
[2021-07-09] MEDS: carvediloL 12.5 MG TABLET PO ×2 (08:59→23:48)
[2021-07-09] MEDS: SPIRONOLACTONE 50 MG TABLET PO (08:59)
[2021-07-09] MEDS: CLOPIDOGREL BISULFATE 75 MG TABLET PO (09:00)
[2021-07-09] MEDS: ASPIRIN 81 MG ENTERIC TABLET PO (09:00)
[2021-07-09] MEDS: FUROSEMIDE 20 MG TABLET PO (09:00)
[2021-07-09] MEDS: ROSUVASTATIN 10 MG TABLET 20 MG PO (09:00)
[2021-07-09] MEDS: ROFLUMILAST 500 MCG TABLET PO (09:00)
[2021-07-09] MEDS: busPIRone HCL 2.5 MG, busPIRone HCL 5 MG 7.5 MG PO ×2 (09:01→17:47)
[2021-07-09] MEDS: SACUBITRIL/VALSARTAN 12-13 MG TABLET 1 TAB PO ×2 (09:01→23:51)
[2021-07-09] MEDS: CITALOPRAM HYDROBROMIDE 20 MG TABLET 40 MG PO (09:01)
[2021-07-09] MEDS: PANTOPRAZOLE SODIUM IV 40 MG VIAL IV PUSH ×2 (09:02→23:49)
[2021-07-09] MEDS: HEPARIN SODIUM 5,000 UNITS/ML VIAL 5000 UNITS SUB-Q ×2 (14:11→23:53)
--- NOTE | 2021-07-09 15:50 | PM.IMPN ---
Progress Note: A&P Assessment and Plan (1) Acute on chronic respiratory failure with hypoxia and hypercapnia: Code(s): J96.21 - Acute and chronic respiratory failure with hypoxia; J96.22 - Acute and chronic respiratory failure with hypercapnia Status: Acute (2) Community acquired pneumonia: Code(s): J18.9 - Pneumonia, unspecified organism Status: Acute (3) Chronic kidney disease, stage 4 (severe): Code(s): N18.4 - Chronic kidney disease, stage 4 (severe) Status: Acute Assessment and Plan: (4) COPD (chronic obstructive pulmonary disease): Code(s): J44.9 - Chronic obstructive pulmonary disease, unspecified Status: Acute (5) Elevated troponin: Code(s): R77.8 - Other specified abnormalities of plasma proteins Status: Acute (6) DVT prophylaxis: Code(s): Z29.9 - Encounter for prophylactic measures, unspecified Status: Acute Assessment and Plan: start heparin subQ Additional Plan Currently on BiPAP Continues pulse ox Breathing treatments Systemic steroids Started on Rocephin and Zithromax Await blood culture Supportive care No prior values to compare Continue to monitor BUN is 27 creatinine is 2.7 Baseline creatinine around 2 follows with building insulation installer in [place] troponin bumped up to 0.663 from 0.020. Cardiology consultation. No active chest pain. Add aspirin continue carvedilol Recheck troponin next Will get lung scan History of coronary artery disease with status post stents 7 years back follows with operations research group manager at [place] troponin bumped up to 0.663 from 0.020. Cardiology consultation. No active chest pain. Add aspirin continue carvedilol Recheck troponin next Will get lung scan History of coronary artery disease with status post stents 7 years back follows with operations research group manager at [place] 07/08/21 pt at baseline renal fxn cough worse when lying down, epigastric pain w h/o Barrets esophagus carafate and pantoprazole added to MAR cont on abx pt off BiPAP and back to her normal home amount of 3L NC ATC cont supportive care CXR in am am labs anticipate dc home in a day or 2 07/09/2021 Remains off BiPAP but now up to 5 L nasal cannula patient uses 3 L around the clock at home Continue steroids, DuoNebs, antibiotics, supportive care No respiratory viral panel available at this hospital COVID and influenza are negative Patient appears to have acute worsening in her clinical course today anticipate delayed discharge Subjective Date/time seen: 07/09/21 13:50 Short of breath coughing requiring 5 L of oxygen today up from 4 yesterday patient states that she feels unwell Exam Narrative: GEN: NAD, AAOx3, cooperative, obese HEENT: NCAT, MMM, EOMI Neck: no JVD Heart: S1S2 RRR Lungs: Diffuse rales and wheezing Abd: soft, NT, ND, bowel sounds normoactive Ext: moves all, no cyanosis, no clubbing, no edema Neuro: slow cognition, moves all extremities equally, unsteady gait Psych: mood reduced, affect congruent Objective Data Vital Signs Vital Signs: Vital Signs - 24 hr 07/08/21 20:00 07/08/21 20:18 07/08/21 20:50 Temperature 98.1 F Pulse Rate 74 82 78 Respiratory Rate 18 18 Blood Pressure 115/69 Pulse Oximetry 98 07/08/21 21:00 07/08/21 22:00 07/08/21 23:51 Temperature 97.2 F L Pulse Rate 80 78 63 Respiratory Rate 18 20 Blood Pressure 136/61 Pulse Oximetry 100 07/09/21 00:00 07/09/21 02:00 07/09/21 02:18 Temperature Pulse Rate 70 76 76 Respiratory Rate 20 18 Blood Pressure Pulse Oximetry 100 07/09/21 02:25 07/09/21 04:00 07/09/21 06:00 Temperature 97.2 F L Pulse Rate 77 70 72 Respiratory Rate 18 20 Blood Pressure 102/42 L Pulse Oximetry 97 07/09/21 08:00 07/09/21 08:59 07/09/21 09:06 Temperature 99.5 F Pulse Rate 76 72 80 Respiratory Rate 12 24 H Blood Pressure 109/40 L Pulse Oximetry 89 L 89 L 07/09/21 09:15 07/09/21 10:00 07/09/21 12:00 Temper
[2021-07-09 18:29] LABS: EDCOVIDSCREEN Negative (Negative)
[2021-07-09 18:49] LABS: Influenza Control Positive
[2021-07-09] MEDS: MIRTAZAPINE 30 MG TABLET PO (23:50)
[2021-07-09] MEDS: QUEtiapine FUMARATE 25 MG TABLET PO (23:50)
[2021-07-10] VITALS (21 sets, daily range): BP systolic 87–128; BP diastolic 42–59; PULSE 63–73; RESP 16–24; TEMP 36.2–36.5; O2SAT 92–100
[2021-07-10] MEDS: ALBUTEROL SULFATE NEB 2.5 MG/0.5 ML INH 5 MG INHALATION ×4 (02:34→20:02)
[2021-07-10] MEDS: IPRATROPIUM BR 0.02% INH SOLN 0.5 MG/2.5 ML VIAL INHALATION ×4 (02:34→20:02)
[2021-07-10] MEDS: SUCRALFATE SUSP 100 MG/ML 10 ML UDC 1000 MG PO ×4 (05:29→21:53)
[2021-07-10] MEDS: HEPARIN SODIUM 5,000 UNITS/ML VIAL 5000 UNITS SUB-Q ×3 (05:29→21:51)
[2021-07-10] MEDS: methylPREDNISolone SOD SUCC 125 MG VIAL 60 MG IV PUSH ×2 (05:30→13:31)
[2021-07-10] MEDS: CLOPIDOGREL BISULFATE 75 MG TABLET PO (09:52)
[2021-07-10] MEDS: FUROSEMIDE 20 MG TABLET PO (09:52)
[2021-07-10] MEDS: ROSUVASTATIN 10 MG TABLET 20 MG PO (09:53)
[2021-07-10] MEDS: SPIRONOLACTONE 50 MG TABLET PO (09:53)
[2021-07-10] MEDS: ASPIRIN 81 MG ENTERIC TABLET PO (09:53)
[2021-07-10] MEDS: SACUBITRIL/VALSARTAN 12-13 MG TABLET 1 TAB PO ×2 (09:53→21:49)
[2021-07-10] MEDS: busPIRone HCL 2.5 MG, busPIRone HCL 5 MG 7.5 MG PO ×2 (09:53→16:23)
[2021-07-10] MEDS: carvediloL 12.5 MG TABLET PO ×2 (09:53→21:50)
[2021-07-10] MEDS: CITALOPRAM HYDROBROMIDE 20 MG TABLET 40 MG PO (09:53)
[2021-07-10] MEDS: PANTOPRAZOLE SODIUM IV 40 MG VIAL IV PUSH ×2 (09:54→21:53)
[2021-07-10] MEDS: ROFLUMILAST 500 MCG TABLET PO (09:54)
--- NOTE | 2021-07-10 18:35 | PM.IMPN ---
Progress Note: A&P Assessment and Plan (1) Acute on chronic respiratory failure with hypoxia and hypercapnia: Code(s): J96.21 - Acute and chronic respiratory failure with hypoxia; J96.22 - Acute and chronic respiratory failure with hypercapnia Status: Acute (2) Community acquired pneumonia: Code(s): J18.9 - Pneumonia, unspecified organism Status: Acute (3) Chronic kidney disease, stage 4 (severe): Code(s): N18.4 - Chronic kidney disease, stage 4 (severe) Status: Acute Assessment and Plan: (4) COPD (chronic obstructive pulmonary disease): Code(s): J44.9 - Chronic obstructive pulmonary disease, unspecified Status: Acute (5) Elevated troponin: Code(s): R77.8 - Other specified abnormalities of plasma proteins Status: Acute (6) DVT prophylaxis: Code(s): Z29.9 - Encounter for prophylactic measures, unspecified Status: Acute Assessment and Plan: start heparin subQ Additional Plan Currently on BiPAP Continues pulse ox Breathing treatments Systemic steroids Started on Rocephin and Zithromax Await blood culture Supportive care No prior values to compare Continue to monitor BUN is 27 creatinine is 2.7 Baseline creatinine around 2 follows with car supplier in [place] troponin bumped up to 0.663 from 0.020. Cardiology consultation. No active chest pain. Add aspirin continue carvedilol Recheck troponin next Will get lung scan History of coronary artery disease with status post stents 7 years back follows with military cook at [place] troponin bumped up to 0.663 from 0.020. Cardiology consultation. No active chest pain. Add aspirin continue carvedilol Recheck troponin next Will get lung scan History of coronary artery disease with status post stents 7 years back follows with military cook at [place] 07/08/21 pt at baseline renal fxn cough worse when lying down, epigastric pain w h/o Barrets esophagus carafate and pantoprazole added to MAR cont on abx pt off BiPAP and back to her normal home amount of 3L NC ATC cont supportive care CXR in am am labs anticipate dc home in a day or 2 07/09/2021 Remains off BiPAP but now up to 5 L nasal cannula patient uses 3 L around the clock at home Continue steroids, DuoNebs, antibiotics, supportive care No respiratory viral panel available at this hospital COVID and influenza are negative Patient appears to have acute worsening in her clinical course today anticipate delayed discharge 07/10/21 remains on 5L comfortable cont current therapy cont supporitve care negative for COVID and influenza downgrade to med surg as pt stable on 5L for 24hrs and clinically appears to be improving Subjective Date/time seen: 07/10/21 18:35 pt doing ok cont to have chest congestion cough and SOB Exam Narrative: GEN: NAD, AAOx3, cooperative, obese, color looks good, makes good eye contact, appropriate and oriented HEENT: NCAT, MMM, EOMI Neck: no JVD Heart: S1S2 RRR Lungs: Diffuse rhonci w improved wheezing Abd: soft, NT, ND, bowel sounds normoactive Ext: moves all, no cyanosis, no clubbing, no edema Neuro: slow cognition, moves all extremities equally, unsteady gait Psych: mood and affect congruent Objective Data Vital Signs Vital Signs: Vital Signs - 24 hr 07/09/21 19:56 07/09/21 20:00 07/09/21 20:42 Temperature 97.3 F L Pulse Rate 72 73 Respiratory Rate 20 Blood Pressure 122/53 L Pulse Oximetry 92 93 07/09/21 20:44 07/09/21 20:51 07/09/21 22:00 Temperature Pulse Rate 65 62 80 Respiratory Rate 20 16 Blood Pressure Pulse Oximetry 07/09/21 23:48 07/10/21 00:00 07/10/21 02:00 Temperature 97.5 F L Pulse Rate 74 68 63 Respiratory Rate 16 Blood Pressure 128/54 L Pulse Oximetry 93 07/10/21 02:34 07/10/21 02:36 07/10/21 02:44 Temperature Pulse Rate 64 64 Respiratory Rate 16 16 Blood Pressure Pulse Oximetry 97 07/10/21 04:00 07/10/21
[2021-07-10] MEDS: guaiFENesin 12 HR 600 MG TABCR 1200 MG PO (21:49)
[2021-07-10] MEDS: MIRTAZAPINE 30 MG TABLET PO (21:50)
[2021-07-10] MEDS: QUEtiapine FUMARATE 25 MG TABLET PO (21:50)
[2021-07-10] MEDS: methylPREDNISolone SOD SUCC 125 MG VIAL 80 MG IV PUSH (21:52)
--- NOTE | 2021-07-10 23:00 | PC.NURSE ---
Report called to Dmitri WEINBERG on .
[2021-07-11] VITALS (20 sets, daily range): BP systolic 92–130; BP diastolic 45–58; PULSE 63–71; RESP 16–22; TEMP 35.6–36.4; O2SAT 92–98
[2021-07-11] MEDS: IPRATROPIUM BR 0.02% INH SOLN 0.5 MG/2.5 ML VIAL INHALATION ×6 (00:13→19:54)
[2021-07-11] MEDS: ALBUTEROL SULFATE NEB 2.5 MG/0.5 ML INH 5 MG INHALATION ×6 (00:13→19:54)
[2021-07-11] MEDS: methylPREDNISolone SOD SUCC 125 MG VIAL 80 MG IV PUSH ×2 (05:43→14:06)
[2021-07-11] MEDS: SUCRALFATE SUSP 100 MG/ML 10 ML UDC 1000 MG PO ×4 (05:44→21:27)
[2021-07-11] MEDS: ROSUVASTATIN 10 MG TABLET 20 MG PO (08:40)
[2021-07-11] MEDS: carvediloL 12.5 MG TABLET PO (08:40)
[2021-07-11] MEDS: busPIRone HCL 2.5 MG, busPIRone HCL 5 MG 7.5 MG PO ×2 (08:40→17:36)
[2021-07-11] MEDS: FUROSEMIDE 20 MG TABLET PO (08:41)
[2021-07-11] MEDS: ROFLUMILAST 500 MCG TABLET PO (08:41)
[2021-07-11] MEDS: SPIRONOLACTONE 50 MG TABLET PO (08:42)
[2021-07-11] MEDS: PANTOPRAZOLE SODIUM IV 40 MG VIAL IV PUSH ×2 (08:42→21:28)
[2021-07-11] MEDS: CITALOPRAM HYDROBROMIDE 20 MG TABLET 40 MG PO (08:42)
[2021-07-11] MEDS: ASPIRIN 81 MG ENTERIC TABLET PO (08:42)
[2021-07-11] MEDS: guaiFENesin 12 HR 600 MG TABCR 1200 MG PO ×2 (08:42→21:26)
[2021-07-11] MEDS: CLOPIDOGREL BISULFATE 75 MG TABLET PO (08:42)
[2021-07-11] MEDS: SACUBITRIL/VALSARTAN 12-13 MG TABLET 1 TAB PO ×2 (08:42→21:27)
--- NOTE | 2021-07-11 14:13 | PM.IMPN ---
Progress Note: A&P Assessment and Plan (1) Acute on chronic respiratory failure with hypoxia and hypercapnia: Code(s): J96.21 - Acute and chronic respiratory failure with hypoxia; J96.22 - Acute and chronic respiratory failure with hypercapnia Status: Acute (2) Community acquired pneumonia: Code(s): J18.9 - Pneumonia, unspecified organism Status: Acute (3) Chronic kidney disease, stage 4 (severe): Code(s): N18.4 - Chronic kidney disease, stage 4 (severe) Status: Acute Assessment and Plan: (4) COPD (chronic obstructive pulmonary disease): Code(s): J44.9 - Chronic obstructive pulmonary disease, unspecified Status: Acute (5) Elevated troponin: Code(s): R77.8 - Other specified abnormalities of plasma proteins Status: Acute (6) DVT prophylaxis: Code(s): Z29.9 - Encounter for prophylactic measures, unspecified Status: Acute Assessment and Plan: start heparin subQ Additional Plan Currently on BiPAP Continues pulse ox Breathing treatments Systemic steroids Started on Rocephin and Zithromax Await blood culture Supportive care No prior values to compare Continue to monitor BUN is 27 creatinine is 2.7 Baseline creatinine around 2 follows with floor supervisor in [place] troponin bumped up to 0.663 from 0.020. Cardiology consultation. No active chest pain. Add aspirin continue carvedilol Recheck troponin next Will get lung scan History of coronary artery disease with status post stents 7 years back follows with screen cleaner at [place] troponin bumped up to 0.663 from 0.020. Cardiology consultation. No active chest pain. Add aspirin continue carvedilol Recheck troponin next Will get lung scan History of coronary artery disease with status post stents 7 years back follows with screen cleaner at [place] 07/08/21 pt at baseline renal fxn cough worse when lying down, epigastric pain w h/o Barrets esophagus carafate and pantoprazole added to MAR cont on abx pt off BiPAP and back to her normal home amount of 3L NC ATC cont supportive care CXR in am am labs anticipate dc home in a day or 2 07/09/2021 Remains off BiPAP but now up to 5 L nasal cannula patient uses 3 L around the clock at home Continue steroids, DuoNebs, antibiotics, supportive care No respiratory viral panel available at this hospital COVID and influenza are negative Patient appears to have acute worsening in her clinical course today anticipate delayed discharge 07/10/21 remains on 5L comfortable cont current therapy cont supporitve care negative for COVID and influenza downgrade to med surg as pt stable on 5L for 24hrs and clinically appears to be improving 07/11/21 remains on O2 5L started on 30mg of LWMH (inject to stomach only) Atarax for anxiety decrease steroid dosing to 60mg IV TID cont to wean as tolerated continuing mucinex duonebs, abx cont home meds possible dc in a couple of days when weaned back to home O2 setting Subjective Date/time seen: 07/11/21 11:13 reports that her arms are bleeding and attributes it to heparin shots in triceps area. also complains of feeling anxious and is noted to be jittery otherwise doing well and reports feeling less SOB Exam Narrative: GEN: NAD, AAOx3, cooperative, obese, color looks good, makes good eye contact, appropriate and oriented HEENT: NCAT, MMM, EOMI Neck: no JVD Lungs: decreased breathsounds Abd: soft, NT, ND, bowel sounds normoactive Ext: moves all, no cyanosis, no clubbing, no edema Neuro: moves all extremities equally,jittery, AAOx3, no focal neuro deficits Psych: mood and affect congruent, anxious Objective Data Vital Signs Vital Signs: Vital Signs - 24 hr 07/10/21 16:00 07/10/21 20:00 07/10/21 20:03 Temperature 97.3 F L 97.2 F L Pulse Rate 72 69 71 Respiratory Rate 24 H 16 18 Blood Pressure 90/42 L 87/48 L Pulse Oximetry 94 95 95 07/10/21 20:22 07/10/21 21:35 07/10/21 21
[2021-07-11] MEDS: hydrOXYzine HCL 25 MG TABLET 50 MG PO ×2 (14:48→21:26)
[2021-07-11] MEDS: ENOXAPARIN 30 MG/0.3 ML SYRINGE SUB-Q (14:48)
[2021-07-11 16:18] LABS: Basophils Percent Auto 0.1 % (0.2-1.2); Hematocrit 30.7 % (37.0-47.0); Hemoglobin 9.7 g/dL (12.0-15.0); Immature Granulocyte Absolute 0.13 K/mm3 (0.00-0.031); Immature Granulocyte Percent A 1.2 % (0-0.5); Lymphocytes Percent Auto 5.4 % (18.3-44.2); Mean Corpuscular HGB Conc 31.6 g/dl (32-36); Mean Corpuscular Hemoglobin 27.8 pg (26-34); Mean Platelet Volume 10.2 fl (7.4-10.4); Monocytes Absolute Auto 0.5 K/mm3 (0.1-0.6); Monocytes Percent Auto 4.4 % (2.6-8.5); Neutrophils Absolute Auto 9.9 K/mm3 (1.3-6.7); Neutrophils Percent Auto 88.9 % (45.5-73.1); Nucleated Red Blood Cells Perc 0.2 % (0.0-0.2); Platelet Count Result 286 k/mm3 (150-375); Red Blood Count 3.49 M/mm3 (4.2-5.4); Red Cell Distribution Width 13.2 % (11.5-14.5); White Blood Count 11.2 K/mm3 (4.5-10.0)
[2021-07-11 16:32] LABS: Ovalocytes 1+ (NORMAL); Platelet Estimate Adequate (Adequate)
[2021-07-11 16:34] LABS: Anion Gap 14 mmol/L (8-16); Blood Urea Nitrogen 69 mg/dL (7-17); Calcium 8.5 mg/dL (8.4-10.2); Carbon Dioxide 25 mmol/L (22-30); Chloride 98 mmol/L (98-107); Estimated CRCL calculation 12 ml/min; Estimated Glomerular Filt Rate 12; Glucose 150 mg/dL (65-110); Potassium 3.8 mmol/L (3.4-5.0); Sodium 137 mmol/L (137-145)
[2021-07-11] MEDS: methylPREDNISolone SOD SUCC 125 MG VIAL 60 MG IV PUSH (21:26)
[2021-07-11] MEDS: QUEtiapine FUMARATE 25 MG TABLET PO (21:27)
[2021-07-11] MEDS: MIRTAZAPINE 30 MG TABLET PO (21:28)
[2021-07-11] MEDS: carvediloL 6.25 MG TABLET PO (21:30)
[2021-07-12] VITALS (17 sets, daily range): BP systolic 99–117; BP diastolic 52–54; PULSE 58–74; RESP 14–24; TEMP 36–36.2; O2SAT 90–100
[2021-07-12] MEDS: IPRATROPIUM BR 0.02% INH SOLN 0.5 MG/2.5 ML VIAL INHALATION ×7 (00:34→23:45)
[2021-07-12] MEDS: ALBUTEROL SULFATE NEB 2.5 MG/0.5 ML INH 5 MG INHALATION ×7 (00:34→23:45)
[2021-07-12] MEDS: methylPREDNISolone SOD SUCC 125 MG VIAL 60 MG IV PUSH (06:20)
[2021-07-12] MEDS: SUCRALFATE SUSP 100 MG/ML 10 ML UDC 1000 MG PO ×4 (06:21→21:12)
[2021-07-12 06:23] LABS: Hematocrit 31.2 % (37.0-47.0); Hemoglobin 9.6 g/dL (12.0-15.0); Immature Granulocyte Absolute 0.13 K/mm3 (0.00-0.031); Immature Granulocyte Percent A 1.3 % (0-0.5); Lymphocytes Absolute Auto 0.57 K/mm3 (0.9-3.2); Lymphocytes Percent Auto 5.8 % (18.3-44.2); Mean Corpuscular HGB Conc 30.8 g/dl (32-36); Mean Corpuscular Hemoglobin 28.2 pg (26-34); Mean Corpuscular Volume 91.8 fl (80-100); Mean Platelet Volume 10.4 fl (7.4-10.4); Monocytes Absolute Auto 0.4 K/mm3 (0.1-0.6); Monocytes Percent Auto 4.4 % (2.6-8.5); Neutrophils Absolute Auto 8.7 K/mm3 (1.3-6.7); Neutrophils Percent Auto 88.5 % (45.5-73.1); Platelet Count Result 245 k/mm3 (150-375); Red Cell Distribution Width 13.2 % (11.5-14.5); White Blood Count 9.8 K/mm3 (4.5-10.0)
[2021-07-12 06:24] LABS: Alanine Aminotransferase 16 U/L (4-35); Albumin Level 3.6 g/dL (3.5-5.1); Alkaline Phosphatase 52 U/L (38-126); Anion Gap 12 mmol/L (8-16); Aspartate Amino Transferase 21 U/L (14-36); Bilirubin,Total 0.3 mg/dL (0.2-1.3); Blood Urea Nitrogen 68 mg/dL (7-17); Calcium 8.3 mg/dL (8.4-10.2); Carbon Dioxide 25 mmol/L (22-30); Chloride 100 mmol/L (98-107); Estimated CRCL calculation 12 ml/min; Estimated Glomerular Filt Rate 13; Glucose 134 mg/dL (65-110); Magnesium 2.8 mg/dL (1.6-2.3); Potassium 3.4 mmol/L (3.4-5.0); Sodium 137 mmol/L (137-145)
[2021-07-12 08:04] LABS: Glucose Point of Care 134 mg/dl (65-105)
[2021-07-12] MEDS: guaiFENesin 12 HR 600 MG TABCR 1200 MG PO ×2 (08:17→21:11)
[2021-07-12] MEDS: ASPIRIN 81 MG ENTERIC TABLET PO ×2 (08:17→08:30)
[2021-07-12] MEDS: busPIRone HCL 2.5 MG, busPIRone HCL 5 MG 7.5 MG PO ×2 (08:18→17:17)
[2021-07-12] MEDS: CLOPIDOGREL BISULFATE 75 MG TABLET PO (08:18)
[2021-07-12] MEDS: CITALOPRAM HYDROBROMIDE 20 MG TABLET 40 MG PO (08:18)
[2021-07-12] MEDS: FUROSEMIDE 20 MG TABLET PO (08:18)
[2021-07-12] MEDS: SPIRONOLACTONE 50 MG TABLET PO (08:19)
[2021-07-12] MEDS: SACUBITRIL/VALSARTAN 12-13 MG TABLET 1 TAB PO (08:19)
[2021-07-12] MEDS: ENOXAPARIN 30 MG/0.3 ML SYRINGE SUB-Q (08:19)
[2021-07-12] MEDS: PANTOPRAZOLE SODIUM IV 40 MG VIAL IV PUSH ×2 (08:19→21:13)
[2021-07-12] MEDS: ROFLUMILAST 500 MCG TABLET PO (08:19)
[2021-07-12] MEDS: ROSUVASTATIN 10 MG TABLET 20 MG PO (08:19)
[2021-07-12] MEDS: carvediloL 6.25 MG TABLET PO ×2 (08:30→21:12)
--- NOTE | 2021-07-12 08:35 | PM.IMPN ---
Progress Note: A&P Assessment and Plan (1) Acute on chronic respiratory failure with hypoxia and hypercapnia: Code(s): J96.21 - Acute and chronic respiratory failure with hypoxia; J96.22 - Acute and chronic respiratory failure with hypercapnia Status: Acute (2) Community acquired pneumonia: Code(s): J18.9 - Pneumonia, unspecified organism Status: Acute (3) Chronic kidney disease, stage 4 (severe): Code(s): N18.4 - Chronic kidney disease, stage 4 (severe) Status: Acute Assessment and Plan: (4) COPD (chronic obstructive pulmonary disease): Code(s): J44.9 - Chronic obstructive pulmonary disease, unspecified Status: Acute (5) Elevated troponin: Code(s): R77.8 - Other specified abnormalities of plasma proteins Status: Acute (6) DVT prophylaxis: Code(s): Z29.9 - Encounter for prophylactic measures, unspecified Status: Acute Assessment and Plan: start heparin subQ Additional Plan Currently on BiPAP Continues pulse ox Breathing treatments Systemic steroids Started on Rocephin and Zithromax Await blood culture Supportive care No prior values to compare Continue to monitor BUN is 27 creatinine is 2.7 Baseline creatinine around 2 follows with mail list librarian in [place] troponin bumped up to 0.663 from 0.020. Cardiology consultation. No active chest pain. Add aspirin continue carvedilol Recheck troponin next Will get lung scan History of coronary artery disease with status post stents 7 years back follows with pulpwood dealer at [place] troponin bumped up to 0.663 from 0.020. Cardiology consultation. No active chest pain. Add aspirin continue carvedilol Recheck troponin next Will get lung scan History of coronary artery disease with status post stents 7 years back follows with pulpwood dealer at [place] 07/08/21 pt at baseline renal fxn cough worse when lying down, epigastric pain w h/o Barrets esophagus carafate and pantoprazole added to MAR cont on abx pt off BiPAP and back to her normal home amount of 3L NC ATC cont supportive care CXR in am am labs anticipate dc home in a day or 2 07/09/2021 Remains off BiPAP but now up to 5 L nasal cannula patient uses 3 L around the clock at home Continue steroids, DuoNebs, antibiotics, supportive care No respiratory viral panel available at this hospital COVID and influenza are negative Patient appears to have acute worsening in her clinical course today anticipate delayed discharge 07/10/21 remains on 5L comfortable cont current therapy cont supporitve care negative for COVID and influenza downgrade to med surg as pt stable on 5L for 24hrs and clinically appears to be improving 07/11/21 remains on O2 5L started on 30mg of LWMH (inject to stomach only) Atarax for anxiety decrease steroid dosing to 60mg IV TID cont to wean as tolerated continuing mucinex duonebs, abx cont home meds possible dc in a couple of days when weaned back to home O2 setting 07/12/[address] Akins consult Hold home medications that are nephro toxic, cardiac meds will need to be restarted soon Slowly weaning steroids Extensive cardiac and pulmonary history on protracted hospital course but is improving Subjective Date/time seen: 07/12/21 08:35 Patient doing okay minimal improvement from previous days. I discussed with her her declining renal function she is aware normally when she is hospitalized that she has a rise in her creatinine. She is in agreement to nephro consult. She is baseline O2 dependent at 3 L current we on 5 spoke with RN to start weaning as able. Exam Narrative: GEN: NAD, AAOx3, cooperative, makes good eye contact, appropriate and oriented HEENT: NCAT, MMM, EOMI Neck: no JVD Lungs: decreased breath sounds, inspiratory crackles Ext: moves all, no cyanosis, no clubbing, no edema Neuro: moves all extremities equally,jittery, AAOx3, no focal neuro deficits Psych: mood and a
--- NOTE | 2021-07-12 09:49 | PM.CNNEP ---
Assessment and Plan Assessment and plan (1) Acute kidney injury: Code(s): N17.9 - Acute kidney failure, unspecified Status: Acute Assessment and Plan: The patient has acute kidney injury. The patient may have an element of dehydration because she has increased insensible loss and this is probably worsened by pneumonia with tachypnea. While she was sick she continued to take her furosemide. Patient is on valsartan and so any increase in creatinine is extension weighted under this circumstance. The patient has pneumonia/sepsis so could have an element of ATN. Patient could always have obstruction or rhabdomyolysis and will check tests for these. The patient has a history of congestive heart failure however her echocardiogram looks good so I do not think that chronic pre renal azotemia from poor cardiac function is playing a role. Glomerulonephritis and interstitial nephritis would be unusual in this setting. Will check urine electrolytes, CPK, renal ultrasound. (2) Chronic kidney disease, stage 4 (severe): Code(s): N18.4 - Chronic kidney disease, stage 4 (severe) Status: Acute Assessment and Plan: Patient has chronic kidney disease stage 4. GFR is probably around 20 at baseline. We can try to get some records from Dr. Mendoza. Etiology of this is unclear. Perhaps vascular disease and she used to smoke. (3) COPD (chronic obstructive pulmonary disease): Code(s): J44.9 - Chronic obstructive pulmonary disease, unspecified Status: Acute Assessment and Plan: Patient has COPD, remnants of her smoking history. She is on home oxygen and, inhalers and nebulizers at home. (4) Community acquired pneumonia: Code(s): J18.9 - Pneumonia, unspecified organism Status: Acute Assessment and Plan: The patient is getting antibiotics. (5) CHF (congestive heart failure): Code(s): I50.9 - Heart failure, unspecified Status: Acute Assessment and Plan: On echocardiogram, there is a mild reduction in global longitudinal strain. I do not think her cardiac function is bad enough to be contributing to her kidney disease. History of Present Illness Reason for Consult Consult date: 07/12/21 Chief Complaint Chief complaint: Acute Respiratory Failure w/Hypoxia,Hypercapnea,Pn History of Present Illness Narrative: Leticia is a very pleasant 70-year-old lady who has chronic kidney disease stage 4 unclear cause, ?CHF ?, COPD on home oxygen, former smoker, anemia, hyperlipidemia. The patient came in the hospital because of shortness of breath. She has inhalers and a nebulizer machine at home as well as home oxygen. Because of the shortness of breath she called 911. Her O2 sat was low in the 70s. She was transported to the emergency room. Here she was evaluated and found to have hypoxia and high pCO2. Chest x-ray showed infiltrates. She was swabbed for COVID and is negative. She was admitted for pneumonia. She was placed on antibiotics and given nebulizers and oxygen. Today the patient feels a little bit better. Her creatinine on admission was 2.7. It fell to 2.2 on the day after admission then alyson back to 2.6. Now it is up to 3.6 so renal consultation was requested. She has never been to this hospital before. She does tell us that she has stage 4 chronic kidney disease but does not know the exact number. Her EGFR at her current creatinine is only 13 so most likely this is worse than her usual creatinine. She denies any bloody urine, foamy urine, kidney stones, or bladder infections. No pain with urination. She has not been taking any [id number] medications including nonsteroidal anti-inflammatory agents. She says that she has congestive heart failure. She is on Entresto and spironolactone along with furosemide. Her echo this admission however shows she has well-preserved cardiac systolic function and no diastolic dysfunction. Although she does have a
[2021-07-12 09:51] LABS: Creatine Kinase 99 U/L (30-135)
[2021-07-12 11:25] LABS: Creatinine Urine 75.7 mg/dL; Total Protein Urine Random 34 mg/dL; Ur Ttl Prot Creatinine Ratio 0.45 mg/mg (0-0.20)
[2021-07-12 11:30] LABS: Add Urine Microscopic? YES; Appearance Urine Cloudy (Clear); Bacteria Urine Trace /hpf; Bilirubin Urine Negative (Negative); Blood Urine 2+ (Negative); Color Urine Yellow (Yellow); Glucose Urine UA Negative (Negative); Ketones Urine Negative (Negative); Leukocyte Esterase Ur Negative LEU/UL (NEGATIVE); Mucus Urine Rare /lpf; Nitrate Urine Negative (Negative); Protein Urine 1+ mg/dL (Negative); Sodium Urine Random 20 meq/L; Specific Grav Ur 1.013 (1.001-1.035); Squamous Epithelial Cell Urine Occasional /hpf (Few); Transitional Epi Cells Urine Rare /hpf (None Seen); Urobilinogen Urine Negative mg/dL (<2.0)
[2021-07-12] MEDS: methylPREDNISolone SOD SUCC 40 MG VIAL IV PUSH ×2 (15:22→21:13)
[2021-07-12] MEDS: MIRTAZAPINE 30 MG TABLET PO (21:11)
[2021-07-12] MEDS: hydrOXYzine HCL 25 MG TABLET 50 MG PO (21:12)
[2021-07-12] MEDS: QUEtiapine FUMARATE 25 MG TABLET PO (21:12)
[2021-07-13] VITALS (19 sets, daily range): BP systolic 102–137; BP diastolic 41–54; PULSE 62–89; RESP 16–20; TEMP 35.7–36.7; O2SAT 94–98
[2021-07-13 00:10] LABS: Glucose Point of Care 132 mg/dl (65-105)
[2021-07-13] MEDS: methylPREDNISolone SOD SUCC 40 MG VIAL IV PUSH ×3 (05:39→20:40)
[2021-07-13] MEDS: SUCRALFATE SUSP 100 MG/ML 10 ML UDC 1000 MG PO ×4 (05:39→23:42)
[2021-07-13 06:34] LABS: Albumin Level 3.5 g/dL (3.5-5.1); Anion Gap 11 mmol/L (8-16); Blood Urea Nitrogen 65 mg/dL (7-17); Calcium 8.2 mg/dL (8.4-10.2); Carbon Dioxide 26 mmol/L (22-30); Chloride 101 mmol/L (98-107); Estimated CRCL calculation 15 ml/min; Estimated Glomerular Filt Rate 15; Glucose 123 mg/dL (65-110); Potassium 3.3 mmol/L (3.4-5.0); Sodium 138 mmol/L (137-145)
[2021-07-13] MEDS: IPRATROPIUM BR 0.02% INH SOLN 0.5 MG/2.5 ML VIAL INHALATION ×4 (08:04→19:27)
[2021-07-13] MEDS: ALBUTEROL SULFATE NEB 2.5 MG/0.5 ML INH 5 MG INHALATION ×4 (08:04→19:27)
[2021-07-13] MEDS: guaiFENesin 12 HR 600 MG TABCR 1200 MG PO ×2 (08:30→20:40)
[2021-07-13] MEDS: ROSUVASTATIN 10 MG TABLET 20 MG PO (08:30)
[2021-07-13] MEDS: busPIRone HCL 2.5 MG, busPIRone HCL 5 MG 7.5 MG PO ×2 (08:30→16:22)
[2021-07-13] MEDS: CLOPIDOGREL BISULFATE 75 MG TABLET PO (08:30)
[2021-07-13] MEDS: CITALOPRAM HYDROBROMIDE 20 MG TABLET 40 MG PO (08:30)
[2021-07-13] MEDS: ROFLUMILAST 500 MCG TABLET PO (08:30)
[2021-07-13] MEDS: ASPIRIN 81 MG ENTERIC TABLET PO (08:30)
[2021-07-13] MEDS: carvediloL 6.25 MG TABLET PO ×2 (08:31→20:41)
[2021-07-13] MEDS: PANTOPRAZOLE SODIUM IV 40 MG VIAL IV PUSH ×2 (08:33→20:40)
[2021-07-13] MEDS: hydrOXYzine HCL 25 MG TABLET 50 MG PO ×3 (08:39→20:41)
[2021-07-13] MEDS: ENOXAPARIN 30 MG/0.3 ML SYRINGE SUB-Q (08:40)
[2021-07-13] MEDS: POTASSIUM CHLORIDE 10 MEQ TABLET PO (10:10)
--- NOTE | 2021-07-13 15:49 | P.PNNP_ITS ---
Progress Note: A&P Assessment and Plan (1) Acute kidney injury: Code(s): N17.9 - Acute kidney failure, unspecified Status: Acute Assessment and Plan: * due to several issues: - prerenal azotemia - dehydration + insensible losses + continued lasix use JR. SYSTEMS ADMINISTRATOR - infection (pneumonia) - continued use of ARB therapy JR. SYSTEMS ADMINISTRATOR * renal ultrasound noted * urine electrolytes c/w with volume depletion * CPK okay * creatinine slowly improving * follow trend of repeat labs and UOP (2) Chronic kidney disease, stage 4 (severe): Code(s): N18.4 - Chronic kidney disease, stage 4 (severe) Status: Chronic Assessment and Plan: * awaiting records from primary certified detention deputy's office * however, per patient, she has CKD stage 4 * she states that her last creatinine was 2.25mg/dl on her last visit with Dr. Mendoza * suspect it is due to cardiac and vascular disease along with age-related change (3) Community acquired pneumonia: Code(s): J18.9 - Pneumonia, unspecified organism Status: Acute Assessment and Plan: * as noted by admission imaging as well as history * on antibiotics * follow cultures (4) COPD (chronic obstructive pulmonary disease): Code(s): J44.9 - Chronic obstructive pulmonary disease, unspecified Status: Acute Assessment and Plan: * likely complicating her pneumonia * continue supportive therapy (oxygen, inhalers, nebulizer treatments...etc) Will continue to follow. Subjective Date/time seen: 07/13/21 15:49 Seems to be doing a bit better today -- still admits to some shortness of breath particularly with any type of physical/exertional activity; no acute distress voiced; no issues/events overnight. Exam Narrative: General: WD/WN female in NAD Heart: normal S1 and S2; no rub Lungs: decreased breath sounds throughout Abdomen: soft, nontender, nondistended, positive bowel sounds Extremities: no cyanosis or clubbing; no edema Skin: warm and dry Objective Data Vital Signs Vital Signs: Vital Signs Temp Pulse Resp BP Pulse Ox 07/13/21 14:47 36.5 C 62 18 102/46 L 95 07/13/21 11:54 67 16 07/13/21 11:46 63 16 07/13/21 08:31 73 07/13/21 08:14 64 16 07/13/21 08:10 94 07/13/21 08:05 66 16 07/13/21 05:37 35.7 C L 71 18 103/41 L 96 07/13/21 00:19 67 94 07/13/21 00:10 36.6 C 62 18 137/45 L 98 07/12/21 23:45 67 14 07/12/21 21:12 64 07/12/21 20:14 36.0 C L 64 18 117/52 L 100 07/12/21 20:12 64 14 07/12/21 20:02 64 14 Intake/Output Intake/Output: Intake & Output 07/10/21 07/11/21 07/12/21 07/13/21 23:59 23:59 23:59 23:59 Intake Total 1610 1120 1320 1460 Output Total 950 762 913 0882 Balance 505 188 2176 160 Meds/Results Medications: Active Medications Generic Name Dose Route Start Last Admin Trade Name Freq PRN Reason Stop Dose Admin Albuterol 2.5 mg 07/08/21 13:11 Albuterol Sulfate Neb 2.5 Mg/0.5 Ml Inh INHALATION QIDRT PRN Shortness Of Breath Or Wheezing Albuterol 5 mg 07/10/21 20:00 07/13/21 16:58 Albuterol Sulfate Neb 2.5 Mg/0.5 Ml In
--- NOTE | 2021-07-13 15:49 | PM.PNNEP ---
Progress Note: A&P Assessment and Plan (1) Acute kidney injury: Code(s): N17.9 - Acute kidney failure, unspecified Status: Acute Assessment and Plan: due to several issues: - prerenal azotemia - dehydration + insensible losses + continued lasix use SALES CLERK - infection (pneumonia) - continued use of ARB therapy SALES CLERK renal ultrasound noted urine electrolytes c/w with volume depletion CPK okay creatinine slowly improving follow trend of repeat labs and UOP (2) Chronic kidney disease, stage 4 (severe): Code(s): N18.4 - Chronic kidney disease, stage 4 (severe) Status: Chronic Assessment and Plan: awaiting records from primary edge roller's office however, per patient, she has CKD stage 4 she states that her last creatinine was 2.25mg/dl on her last visit with Dr. Mendoza suspect it is due to cardiac and vascular disease along with age-related change (3) Community acquired pneumonia: Code(s): J18.9 - Pneumonia, unspecified organism Status: Acute Assessment and Plan: as noted by admission imaging as well as history on antibiotics follow cultures (4) COPD (chronic obstructive pulmonary disease): Code(s): J44.9 - Chronic obstructive pulmonary disease, unspecified Status: Acute Assessment and Plan: likely complicating her pneumonia continue supportive therapy (oxygen, inhalers, nebulizer treatments...etc) Will continue to follow. Subjective Date/time seen: 07/13/21 15:49 Seems to be doing a bit better today -- still admits to some shortness of breath particularly with any type of physical/exertional activity; no acute distress voiced; no issues/events overnight. Exam Narrative: General: WD/WN female in NAD Heart: normal S1 and S2; no rub Lungs: decreased breath sounds throughout Abdomen: soft, nontender, nondistended, positive bowel sounds Extremities: no cyanosis or clubbing; no edema Skin: warm and dry Objective Data Vital Signs Vital Signs: Vital Signs Temp Pulse Resp BP Pulse Ox 07/13/21 14:47 36.5 C 62 18 102/46 L 95 07/13/21 11:54 67 16 07/13/21 11:46 63 16 07/13/21 08:31 73 07/13/21 08:14 64 16 07/13/21 08:10 94 07/13/21 08:05 66 16 07/13/21 05:37 35.7 C L 71 18 103/41 L 96 07/13/21 00:19 67 94 07/13/21 00:10 36.6 C 62 18 137/45 L 98 07/12/21 23:45 67 14 07/12/21 21:12 64 07/12/21 20:14 36.0 C L 64 18 117/52 L 100 07/12/21 20:12 64 14 07/12/21 20:02 64 14 Intake/Output Intake/Output: Intake & Output 07/10/21 07/11/21 07/12/21 07/13/21 23:59 23:59 23:59 23:59 Intake Total 1610 1120 1320 1460 Output Total 950 482 703 7265 Balance 736 557 8125 160 Meds/Results Medications: Active Medications Generic Name Dose Route Start Last Admin Trade Name Freq PRN Reason Stop Dose Admin Albuterol 2.5 mg 07/08/21 13:11 Albuterol Sulfate Neb 2.5 Mg/0.5 Ml Inh INHALATION QIDRT PRN Shortness Of Breath Or Wheezing Albuterol 5 mg 07/10/21 20:00 07/13/21 16:58 Albuterol Sulfate Neb 2.5 Mg/0.5 Ml Inh INHALATION 5 mg Q4HRT ERIC Administration Aspirin 81 mg 07/12/21 09:00 07/13/21 08:30 Aspirin 81 Mg Enteric Tablet PO 81 mg QAM EIRC Administration Budesonide/Formoterol Fumarate 2 puff 07/09/21 09:00 07/13/21 08:04 Budesonide/Form 160-4.5 Mcg (*Sp) INHALATION 2 puff DAILY ERIC Administration Buspirone HCl 2.5 mg/ 7.5 mg 07/08/21 17:00 07/13/21 16:22 Buspirone HCl 5 mg PO 7.5 mg BID ERIC Administration Carvedilol 6.25 mg 07/11/21 21:00 07/13/21 08:31 Carvedilol 6.25 Mg Tablet PO 6.25 mg Q12HR ERIC Administration Citalopram Hydrobromide 40 mg 07/09/21 09:00 07/13/21 08:30 Citalopram Hydrobromide 20 Mg Tablet PO 40 mg DAILY ERIC Administration Clopidogrel Bisulfate 75 mg 07/08/21 09:00 07/13/21 08:30 C
--- NOTE | 2021-07-13 17:01 | PM.IMPN ---
Progress Note: A&P Assessment and Plan (1) Acute on chronic respiratory failure with hypoxia and hypercapnia: Code(s): J96.21 - Acute and chronic respiratory failure with hypoxia; J96.22 - Acute and chronic respiratory failure with hypercapnia Status: Acute Assessment and Plan: Requires 3 L per nasal cannula with rest and exertion at baseline. Chronic respiratory failure due to COPD. Acute worsening likely related to community-acquired pneumonia and suspected COPD exacerbation. She is currently requiring 4 L per nasal cannula Continue supplemental O2 with goal saturation 90% or above. Wean to goal. Treatment for pneumonia and COPD as described below Continue with supportive care (2) Community acquired pneumonia: Code(s): J18.9 - Pneumonia, unspecified organism Status: Acute Assessment and Plan: CXR shows airspace opacities in the right perihilar region consistent with pneumonia. COVID and influenza negative. Continue ceftriaxone and azithromycin Supplemental O2 as above Supportive care to include bronchodilators, expectorants, antipyretics, and incentive spirometry Blood cultures negative Preliminary sputum culture negative Urine pneumococcal antigen and mycoplasma pneumoniae antigen pending (3) COPD (chronic obstructive pulmonary disease): Code(s): J44.9 - Chronic obstructive pulmonary disease, unspecified Status: Acute Assessment and Plan: With diffuse wheezing, consistent with COPD exacerbation. Continue Solu-Medrol. Wean as tolerated Antibiotics as above Albuterol and ipratropium nebs Continue daliresp and Symbicort inhalers (4) Chronic kidney disease, stage 4 (severe): Code(s): N18.4 - Chronic kidney disease, stage 4 (severe) Status: Acute Assessment and Plan: Acute on chronic. Baseline GFR around 20. Creatinine elevated at 3.0 today, BUN 65, GFR 15. Holding valsartan and furosemide May be prerenal due to dehydration given acute infection vs ATN from pneumonia Appreciate nephrology consultation She is established with territory manager general sales Dr. Mendoza. Records have been requested. (5) Normocytic anemia: Code(s): D64.9 - Anemia, unspecified Status: Acute Assessment and Plan: H&H has remained stable. No signs of blood loss and vitals have remained stable Monitor H&H closely Evaluate iron panel have B12, and folate (6) Elevated troponin: Code(s): R77.8 - Other specified abnormalities of plasma proteins Status: Acute Assessment and Plan: Evaluated by Cardiology. Not felt to be consistent with acute coronary syndrome and felt to be related more likely to hypoxemia and anemia Subjective Date/time seen: 07/13/21 17:01 Interval history: Date of service: 07/13/2021 Leticia Mullins is a 70-year-old female with history of CHF, CKD, COPD who is seen in follow-up for acute on chronic respiratory failure. She is doing pretty well today. She still feels short of breath and states her breathing is ?a little shaky? today. She reports feeling short of breath when she talks too much or with activity. She has been able to get up and walk to the bathroom without significant difficulty. She continues to endorse cough productive of thick clear/white mucus. She endorses tightness in her chest only when she has the head episode of coughing. She does endorse wheezing today but feels that is improved. She is tearful. She is unhappy that she has been getting injections in her stomach and blood draws from her arm, stating this is causing her to bleed and have more pain. Her appetite has been good. She denies nausea, vomiting, fever, chills, dizziness, lightheadedness, weakness. Review of Systems Review of Systems: All systems reviewed & are unremarkable except as noted in HPI and below Exam Narrative: Ms. Mullins is a well-nourished, well-appearing 70-year-old female who is si
[2021-07-13] MEDS: QUEtiapine FUMARATE 25 MG TABLET PO (20:41)
[2021-07-13] MEDS: MIRTAZAPINE 30 MG TABLET PO (20:41)
[2021-07-14] VITALS (15 sets, daily range): BP systolic 110–140; BP diastolic 54–57; PULSE 59–78; RESP 18–20; TEMP 36.1–36.9; O2SAT 96–100
[2021-07-14] MEDS: ALBUTEROL SULFATE NEB 2.5 MG/0.5 ML INH 5 MG INHALATION ×8 (00:13→23:51)
[2021-07-14] MEDS: IPRATROPIUM BR 0.02% INH SOLN 0.5 MG/2.5 ML VIAL INHALATION ×7 (00:13→23:51)
--- NOTE | 2021-07-14 05:41 | PCRCNOTE ---
tx not given, therapist in Rapid Response
[2021-07-14 06:01] LABS: Hematocrit 30.2 % (37.0-47.0); Hemoglobin 9.5 g/dL (12.0-15.0); Mean Corpuscular HGB Conc 31.5 g/dl (32-36); Mean Corpuscular Hemoglobin 28.6 pg (26-34); Mean Platelet Volume 10.5 fl (7.4-10.4); Platelet Count Result 226 k/mm3 (150-375); Red Blood Count 3.32 M/mm3 (4.2-5.4); Red Cell Distribution Width 13.2 % (11.5-14.5); White Blood Count 10.1 K/mm3 (4.5-10.0)
[2021-07-14 06:12] LABS: Anion Gap 8 mmol/L (8-16); Blood Urea Nitrogen 60 mg/dL (7-17); Calcium 8.1 mg/dL (8.4-10.2); Carbon Dioxide 28 mmol/L (22-30); Chloride 101 mmol/L (98-107); Estimated CRCL calculation 18 ml/min; Estimated Glomerular Filt Rate 19; Glucose 130 mg/dL (65-110); Potassium 3.2 mmol/L (3.4-5.0); Sodium 137 mmol/L (137-145)
[2021-07-14 07:17] LABS: Folic Acid 4.9 ng/mL (2.76->20)
[2021-07-14 07:21] LABS: Iron 137 ug/dL (37-170)
[2021-07-14 07:30] LABS: Percent Iron Saturation 55 % (20-50)
[2021-07-14] MEDS: methylPREDNISolone SOD SUCC 40 MG VIAL IV PUSH ×2 (07:31→18:19)
[2021-07-14] MEDS: SUCRALFATE SUSP 100 MG/ML 10 ML UDC 1000 MG PO ×4 (07:31→21:14)
[2021-07-14] MEDS: ROFLUMILAST 500 MCG TABLET PO (08:30)
[2021-07-14] MEDS: CLOPIDOGREL BISULFATE 75 MG TABLET PO (08:30)
[2021-07-14] MEDS: busPIRone HCL 2.5 MG, busPIRone HCL 5 MG 7.5 MG PO ×2 (08:30→16:40)
[2021-07-14] MEDS: CITALOPRAM HYDROBROMIDE 20 MG TABLET 40 MG PO (08:31)
[2021-07-14] MEDS: ASPIRIN 81 MG ENTERIC TABLET PO (08:31)
[2021-07-14] MEDS: ROSUVASTATIN 10 MG TABLET 20 MG PO (08:31)
[2021-07-14] MEDS: ENOXAPARIN 30 MG/0.3 ML SYRINGE SUB-Q (08:32)
[2021-07-14] MEDS: carvediloL 6.25 MG TABLET PO ×2 (08:32→21:15)
[2021-07-14] MEDS: guaiFENesin 12 HR 600 MG TABCR 1200 MG PO ×2 (08:32→21:15)
[2021-07-14] MEDS: PANTOPRAZOLE SODIUM IV 40 MG VIAL IV PUSH ×2 (08:33→21:16)
[2021-07-14] MEDS: hydrOXYzine HCL 25 MG TABLET 50 MG PO ×3 (08:37→21:15)
--- NOTE | 2021-07-14 10:00 | PM.PNNEP ---
Progress Note: A&P Assessment and Plan (1) Acute kidney injury: Code(s): N17.9 - Acute kidney failure, unspecified Status: Acute Assessment and Plan: due to several issues: - prerenal azotemia - dehydration + insensible losses + continued lasix use STRUCTURAL IRONWORKER - infection (pneumonia) - continued use of ARB therapy STRUCTURAL IRONWORKER renal ultrasound noted urine electrolytes c/w with volume depletion CPK okay creatinine slowly improving follow trend of repeat labs and UOP (2) Chronic kidney disease, stage 4 (severe): Code(s): N18.4 - Chronic kidney disease, stage 4 (severe) Status: Chronic Assessment and Plan: she states that her last creatinine was 2.25mg/dl on her last visit with Dr. Mendoza (her primary hydramatic mechanic) suspect it is due to cardiac and vascular disease along with age-related change (3) Community acquired pneumonia: Code(s): J18.9 - Pneumonia, unspecified organism Status: Acute Assessment and Plan: as noted by admission imaging as well as history on antibiotics follow cultures (4) COPD (chronic obstructive pulmonary disease): Code(s): J44.9 - Chronic obstructive pulmonary disease, unspecified Status: Acute Assessment and Plan: likely complicating her pneumonia continue supportive therapy (oxygen, inhalers, nebulizer treatments...etc) Will continue to follow. Subjective Date/time seen: 07/14/21 10:00 Overall, she state she continues to make slow improvement -- breathing has improved with less coughing but when she does cough, she still has thick sputum; still with some mild shortness of breath with exertion; no other acute issues voiced; no events overnight or earlier this AM. Exam Narrative: General: WD/WN female in NAD Heart: normal S1 and S2; no rub Lungs: decreased breath sounds Abdomen: soft, nontender, nondistended, positive bowel sounds Extremities: no cyanosis or clubbing; no edema Skin: warm and intact Objective Data Vital Signs Vital Signs: Vital Signs Temp Pulse Resp BP Pulse Ox 07/14/21 09:27 18 07/14/21 09:15 78 18 96 07/14/21 08:32 71 07/13/21 21:54 36.7 C 84 20 119/52 L 95 07/13/21 20:41 68 07/13/21 20:00 84 20 95 07/13/21 19:36 78 18 09/13/21 19:30 95 07/13/21 19:27 75 18 07/13/21 17:39 36.7 C 78 20 121/54 L 94 07/13/21 17:08 67 20 07/13/21 16:59 89 20 07/13/21 14:47 36.5 C 62 18 102/46 L 95 07/13/21 11:54 67 16 07/13/21 11:46 63 16 Intake/Output Intake/Output: Intake & Output 07/11/21 07/12/21 07/13/21 07/14/21 23:59 23:59 23:59 23:59 Intake Total 1120 1320 1460 780 Output Total 208 797 1023 350 Balance 970 1020 160 430 Meds/Results Medications: Active Medications Generic Name Dose Route Start Last Admin Trade Name Freq PRN Reason Stop Dose Admin Albuterol 2.5 mg 07/08/21 13:11 Albuterol Sulfate Neb 2.5 Mg/0.5 Ml Inh INHALATION QIDRT PRN Shortness Of Breath Or Wheezing Albuterol 5 mg 07/10/21 20:00 07/14/21 09:14 Albuterol Sulfate Neb 2.5 Mg/0.5 Ml Inh INHALATION 5 mg Q4HRT ERIC Administration Aspirin 81 mg 07/12/21 09:00 07/14/21 08:31 Aspirin 81 Mg Enteric Tablet PO 81 mg QAM ERIC Administration Budesonide/Formoterol Fumarate 2 puff 07/09/21 09:00 07/14/21 09:20 Budesonide/Form 160-4.5 Mcg (*Sp) INHALATION 2 puff DAILY ERIC Administration Buspirone HCl 2.5 mg/ 7.5 mg 07/08/21 17:00 07/14/21 08:30 Buspirone HCl 5 mg PO 7.5 mg BID ERIC Administration Carvedilol 6.25 mg 07/11/21 21:00 07/14/21 08:32 Carvedilol 6.25 Mg Tablet PO 6.25 mg Q12HR ERIC Administration Citalopram Hydrobromide 40 mg 07/09/21 09:00 07/14/21 08:31 Citalopram Hydrobromide 20 Mg Tablet PO 40 mg DAILY ERIC Administration Clopidogrel Bisulfate 75 mg 07/08/21 09:00 07/14/21 08:30 Clopidogrel
[2021-07-14] MEDS: CYANOCOBALAMIN 1,000 MCG TABLET 1000 MCG PO (10:19)
[2021-07-14] MEDS: POTASSIUM CHLORIDE 20 MEQ TABLET 40 MEQ PO (10:19)
--- NOTE | 2021-07-14 11:19 | PCNWS ---
Weekly nutritional screen. Patient is tolerating current diet with adequate intake. No weight loss reported. No nutritional needs at this time.
--- NOTE | 2021-07-14 15:32 | P.PNIM_ITS ---
Progress Note: A&P Assessment and Plan (1) Acute on chronic respiratory failure with hypoxia and hypercapnia: Code(s): J96.21 - Acute and chronic respiratory failure with hypoxia; J96.22 - Acute and chronic respiratory failure with hypercapnia Status: Acute Assessment and Plan: Requires 3 L per nasal cannula with rest and exertion at baseline. Chronic respiratory failure due to COPD. Acute worsening likely related to community- acquired pneumonia and suspected COPD exacerbation. She is currently requiring 4 L per nasal cannula * Continue supplemental O2 with goal saturation 90% or above. Wean to goal. She is currently maintaining oxygen saturations at 100%, therefore O2 can be weaned. * Treatment for pneumonia and COPD as described below * Continue with supportive care * Will plan for home O2 evaluation prior to discharge (2) Community acquired pneumonia: Code(s): J18.9 - Pneumonia, unspecified organism Status: Acute Assessment and Plan: CXR showed airspace opacities in the right perihilar region consistent with pneumonia. COVID and influenza negative. * She has completed 7 days of antibiotic therapy with ceftriaxone and azithromycin. Will discontinue. * Supplemental O2 as above * Supportive care to include bronchodilators, expectorants, antipyretics, and incentive spirometry * Blood cultures negative * Preliminary sputum culture negative * Urine pneumococcal antigen negative. (3) COPD (chronic obstructive pulmonary disease): Code(s): J44.9 - Chronic obstructive pulmonary disease, unspecified Status: Acute Assessment and Plan: With diffuse wheezing, consistent with COPD exacerbation. Improving today. * Continue Solu-Medrol, weaned to q12H. Plan to transition to p.o. prednisone tomorrow. * Antibiotics as above * Albuterol and ipratropium nebs * Continue daliresp and Symbicort inhalers (4) Chronic kidney disease, stage 4 (severe): Code(s): N18.4 - Chronic kidney disease, stage 4 (severe) Status: Acute Assessment and Plan: Acute on chronic. Baseline GFR around 20. Creatinine increased up to 3.8 then trended back down. Nearly at baseline today with creatinine 2.5 and GFR 19. * Holding valsartan and furosemide * May be prerenal due to dehydration given acute infection vs ATN from pneumonia * Appreciate nephrology consultation * She is established with barratte operator Dr. Mendoza. Records have been requeste d. (5) Normocytic anemia: Code(s): D64.9 - Anemia, unspecified Status: Acute Assessment and Plan: H&H has remained stable. No signs of blood loss and vitals have remained stable * Monitor H&H closely * Iron panel reviewed with adequate iron stores, B12 decreased. Will initiate p.o. cyanocobalamin daily. (6) Elevated troponin: Code(s): R77.8 - Other specified abnormalities of plasma proteins Status: Acute Assessment and Plan: Evaluated by Cardiology. Not felt to be consistent with acute coronary syndrome and felt to be related more likely to hypoxemia and anemia (7) Hypokalemia: Code(s): E87.6 - Hypokalemia Status: Acute Assessment and Plan: Potassium slightly decreased at 3.2 * Supplement potassium and continue to monitor serum potassium levels closely Subjective Date/time seen: 07/14/21 15:32 Interval history: Date of service: 07/14/2021 Leticia Mullins is a 70-year-old female with history of CHF, CKD, COPD who is seen in follow-up for acu
--- NOTE | 2021-07-14 15:32 | PM.IMPN ---
Progress Note: A&P Assessment and Plan (1) Acute on chronic respiratory failure with hypoxia and hypercapnia: Code(s): J96.21 - Acute and chronic respiratory failure with hypoxia; J96.22 - Acute and chronic respiratory failure with hypercapnia Status: Acute Assessment and Plan: Requires 3 L per nasal cannula with rest and exertion at baseline. Chronic respiratory failure due to COPD. Acute worsening likely related to community-acquired pneumonia and suspected COPD exacerbation. She is currently requiring 4 L per nasal cannula Continue supplemental O2 with goal saturation 90% or above. Wean to goal. She is currently maintaining oxygen saturations at 100%, therefore O2 can be weaned. Treatment for pneumonia and COPD as described below Continue with supportive care Will plan for home O2 evaluation prior to discharge (2) Community acquired pneumonia: Code(s): J18.9 - Pneumonia, unspecified organism Status: Acute Assessment and Plan: CXR showed airspace opacities in the right perihilar region consistent with pneumonia. COVID and influenza negative. She has completed 7 days of antibiotic therapy with ceftriaxone and azithromycin. Will discontinue. Supplemental O2 as above Supportive care to include bronchodilators, expectorants, antipyretics, and incentive spirometry Blood cultures negative Preliminary sputum culture negative Urine pneumococcal antigen negative. (3) COPD (chronic obstructive pulmonary disease): Code(s): J44.9 - Chronic obstructive pulmonary disease, unspecified Status: Acute Assessment and Plan: With diffuse wheezing, consistent with COPD exacerbation. Improving today. Continue Solu-Medrol, weaned to q12H. Plan to transition to p.o. prednisone tomorrow. Antibiotics as above Albuterol and ipratropium nebs Continue daliresp and Symbicort inhalers (4) Chronic kidney disease, stage 4 (severe): Code(s): N18.4 - Chronic kidney disease, stage 4 (severe) Status: Acute Assessment and Plan: Acute on chronic. Baseline GFR around 20. Creatinine increased up to 3.8 then trended back down. Nearly at baseline today with creatinine 2.5 and GFR 19. Holding valsartan and furosemide May be prerenal due to dehydration given acute infection vs ATN from pneumonia Appreciate nephrology consultation She is established with auto painter helper Dr. Mendoza. Records have been requested. (5) Normocytic anemia: Code(s): D64.9 - Anemia, unspecified Status: Acute Assessment and Plan: H&H has remained stable. No signs of blood loss and vitals have remained stable Monitor H&H closely Iron panel reviewed with adequate iron stores, B12 decreased. Will initiate p.o. cyanocobalamin daily. (6) Elevated troponin: Code(s): R77.8 - Other specified abnormalities of plasma proteins Status: Acute Assessment and Plan: Evaluated by Cardiology. Not felt to be consistent with acute coronary syndrome and felt to be related more likely to hypoxemia and anemia (7) Hypokalemia: Code(s): E87.6 - Hypokalemia Status: Acute Assessment and Plan: Potassium slightly decreased at 3.2 Supplement potassium and continue to monitor serum potassium levels closely Subjective Date/time seen: 07/14/21 15:32 Interval history: Date of service: 07/14/2021 Leticia Mullins is a 70-year-old female with history of CHF, CKD, COPD who is seen in follow-up for acute on chronic respiratory failure. She is feeling better today. She feels that her breathing has improved. She is also coughing less frequently. Still endorses thick, white sputum production. Feels she is wheezing less. Continues to endorse OSEI. She is able to sleep better last and is now feeling significantly improved. She does feel a bit anxious. She had a regular bowel movement yesterday and denies melena or hematochezia. She denies an
[2021-07-14 16:44] LABS: Pneumococcal Antigen Urine Not Detected (Not Detected)
[2021-07-14] MEDS: QUEtiapine FUMARATE 25 MG TABLET PO (21:15)
[2021-07-14] MEDS: MIRTAZAPINE 30 MG TABLET PO (21:15)
[2021-07-15] VITALS (15 sets, daily range): BP systolic 111–122; BP diastolic 44–64; PULSE 63–76; RESP 18–22; TEMP 36.2–36.7; O2SAT 96–97
[2021-07-15] MEDS: SUCRALFATE SUSP 100 MG/ML 10 ML UDC 1000 MG PO ×4 (05:25→20:29)
[2021-07-15] MEDS: ALBUTEROL SULFATE NEB 2.5 MG/0.5 ML INH 5 MG INHALATION ×5 (05:45→20:55)
[2021-07-15] MEDS: IPRATROPIUM BR 0.02% INH SOLN 0.5 MG/2.5 ML VIAL INHALATION ×5 (05:45→20:55)
[2021-07-15 05:48] LABS: Hematocrit 29.9 % (37.0-47.0); Hemoglobin 9.2 g/dL (12.0-15.0); Mean Corpuscular HGB Conc 30.8 g/dl (32-36); Mean Corpuscular Hemoglobin 27.7 pg (26-34); Mean Corpuscular Volume 90.1 fl (80-100); Mean Platelet Volume 10.4 fl (7.4-10.4); Platelet Count Result 254 k/mm3 (150-375); Red Blood Count 3.32 M/mm3 (4.2-5.4); Red Cell Distribution Width 13.1 % (11.5-14.5); White Blood Count 11.7 K/mm3 (4.5-10.0)
[2021-07-15 06:00] LABS: Anion Gap 9 mmol/L (8-16); Blood Urea Nitrogen 53 mg/dL (7-17); Calcium 8.3 mg/dL (8.4-10.2); Carbon Dioxide 26 mmol/L (22-30); Chloride 104 mmol/L (98-107); Estimated CRCL calculation 21 ml/min; Estimated Glomerular Filt Rate 23; Glucose 127 mg/dL (65-110); Magnesium 2.7 mg/dL (1.6-2.3); Potassium 3.6 mmol/L (3.4-5.0); Sodium 139 mmol/L (137-145)
[2021-07-15] MEDS: ASPIRIN 81 MG ENTERIC TABLET PO (08:13)
[2021-07-15] MEDS: ROSUVASTATIN 10 MG TABLET 20 MG PO (08:13)
[2021-07-15] MEDS: busPIRone HCL 2.5 MG, busPIRone HCL 5 MG 7.5 MG PO ×2 (08:13→16:56)
[2021-07-15] MEDS: hydrOXYzine HCL 25 MG TABLET 50 MG PO ×2 (08:13→20:29)
[2021-07-15] MEDS: predniSONE 40 MG, predniSONE 10 MG 50 MG PO (08:14)
[2021-07-15] MEDS: CLOPIDOGREL BISULFATE 75 MG TABLET PO (08:14)
[2021-07-15] MEDS: carvediloL 6.25 MG TABLET PO ×2 (08:15→20:29)
[2021-07-15] MEDS: CYANOCOBALAMIN 1,000 MCG TABLET 1000 MCG PO (08:15)
[2021-07-15] MEDS: guaiFENesin 12 HR 600 MG TABCR 1200 MG PO ×2 (08:15→20:29)
[2021-07-15] MEDS: PANTOPRAZOLE SODIUM IV 40 MG VIAL IV PUSH ×2 (08:16→20:29)
[2021-07-15] MEDS: ROFLUMILAST 500 MCG TABLET PO (08:16)
[2021-07-15] MEDS: CITALOPRAM HYDROBROMIDE 20 MG TABLET 40 MG PO (12:22)
[2021-07-15] MEDS: ENOXAPARIN 30 MG/0.3 ML SYRINGE SUB-Q (12:23)
--- NOTE | 2021-07-15 15:18 | P.PNIM_ITS ---
Progress Note: A&P Assessment and Plan (1) Acute on chronic respiratory failure with hypoxia and hypercapnia: Code(s): J96.21 - Acute and chronic respiratory failure with hypoxia; J96.22 - Acute and chronic respiratory failure with hypercapnia Status: Acute Assessment and Plan: Requires 3 L per nasal cannula with rest and exertion at baseline. Chronic respiratory failure due to COPD. Acute worsening likely related to community- acquired pneumonia and suspected COPD exacerbation. She is currently requiring 4 L per nasal cannula * Continue supplemental O2 with goal saturation 90% or above. Wean to goal. She is maintaining oxygen saturations >95%, therefore O2 can be weaned. * Treatment for pneumonia and COPD as described below * Continue with supportive care * Home O2 eval ordered. Hopeful discharge tomorrow (2) Community acquired pneumonia: Code(s): J18.9 - Pneumonia, unspecified organism Status: Acute Assessment and Plan: CXR showed airspace opacities in the right perihilar region consistent with pneumonia. COVID and influenza negative. * She completed 7 days of antibiotic therapy with ceftriaxone and azithromycin, discontinued on 07/14/2021 * Supplemental O2 as above * Supportive care to include bronchodilators, expectorants, antipyretics, and incentive spirometry. Cornet to help mobilize secretions * Blood cultures negative * Sputum culture negative * Urine pneumococcal antigen negative. (3) COPD (chronic obstructive pulmonary disease): Code(s): J44.9 - Chronic obstructive pulmonary disease, unspecified Status: Acute Assessment and Plan: With diffuse wheezing, consistent with COPD exacerbation. Improving today. * Transitioned to p.o. prednisone 50 mg today. Continue for 5 days. * Albuterol and ipratropium nebs * Continue daliresp and Symbicort inhalers (4) Chronic kidney disease, stage 4 (severe): Code(s): N18.4 - Chronic kidney disease, stage 4 (severe) Status: Acute Assessment and Plan: Acute on chronic. Baseline GFR around 20. Creatinine increased up to 3.8 then trended back down. Back to baseline today with creatinine 2.1 and GFR 23. * Holding valsartan and furosemide. Will resume Entresto * May be prerenal due to dehydration given acute infection vs ATN from pneumonia * Appreciate nephrology consultation * She is established with food service aide Dr. Mendoza. Records have been requested. (5) Normocytic anemia: Code(s): D64.9 - Anemia, unspecified Status: Acute Assessment and Plan: H&H has remained stable. No signs of blood loss and vitals have remained stable * Monitor H&H closely * Iron panel reviewed with adequate iron stores, B12 decreased. Continue p.o. cyanocobalamin daily. (6) Elevated troponin: Code(s): R77.8 - Other specified abnormalities of plasma proteins Status: Acute Assessment and Plan: Evaluated by Cardiology. Not felt to be consistent with acute coronary syndrome and felt to be related more likely to hypoxemia and anemia (7) Hypokalemia: Code(s): E87.6 - Hypokalemia Status: Acute Assessment and Plan: Improved. Potassium 3.6 today. * monitor serum potassium levels closely. Mag within normal limits. (8) Anxiety: Code(s): F41.9 - Anxiety disorder, unspecified Status: Acute Assessment and Plan: She is anxious related to being hospitalized. * Continue home Celexa and Buspar * Hydroxyzine as needed * She will
--- NOTE | 2021-07-15 15:18 | PM.IMPN ---
Progress Note: A&P Assessment and Plan (1) Acute on chronic respiratory failure with hypoxia and hypercapnia: Code(s): J96.21 - Acute and chronic respiratory failure with hypoxia; J96.22 - Acute and chronic respiratory failure with hypercapnia Status: Acute Assessment and Plan: Requires 3 L per nasal cannula with rest and exertion at baseline. Chronic respiratory failure due to COPD. Acute worsening likely related to community-acquired pneumonia and suspected COPD exacerbation. She is currently requiring 4 L per nasal cannula Continue supplemental O2 with goal saturation 90% or above. Wean to goal. She is maintaining oxygen saturations >95%, therefore O2 can be weaned. Treatment for pneumonia and COPD as described below Continue with supportive jail O2 eval ordered. Hopeful discharge tomorrow (2) Community acquired pneumonia: Code(s): J18.9 - Pneumonia, unspecified organism Status: Acute Assessment and Plan: CXR showed airspace opacities in the right perihilar region consistent with pneumonia. COVID and influenza negative. She completed 7 days of antibiotic therapy with ceftriaxone and azithromycin, discontinued on 07/14/2021 Supplemental O2 as above Supportive care to include bronchodilators, expectorants, antipyretics, and incentive spirometry. Cornet to help mobilize secretions Blood cultures negative Sputum culture negative Urine pneumococcal antigen negative. (3) COPD (chronic obstructive pulmonary disease): Code(s): J44.9 - Chronic obstructive pulmonary disease, unspecified Status: Acute Assessment and Plan: With diffuse wheezing, consistent with COPD exacerbation. Improving today. Transitioned to p.o. prednisone 50 mg today. Continue for 5 days. Albuterol and ipratropium nebs Continue daliresp and Symbicort inhalers (4) Chronic kidney disease, stage 4 (severe): Code(s): N18.4 - Chronic kidney disease, stage 4 (severe) Status: Acute Assessment and Plan: Acute on chronic. Baseline GFR around 20. Creatinine increased up to 3.8 then trended back down. Back to baseline today with creatinine 2.1 and GFR 23. Holding valsartan and furosemide. Will resume Entresto May be prerenal due to dehydration given acute infection vs ATN from pneumonia Appreciate nephrology consultation She is established with forest firefighter Dr. Mendoza. Records have been requested. (5) Normocytic anemia: Code(s): D64.9 - Anemia, unspecified Status: Acute Assessment and Plan: H&H has remained stable. No signs of blood loss and vitals have remained stable Monitor H&H closely Iron panel reviewed with adequate iron stores, B12 decreased. Continue p.o. cyanocobalamin daily. (6) Elevated troponin: Code(s): R77.8 - Other specified abnormalities of plasma proteins Status: Acute Assessment and Plan: Evaluated by Cardiology. Not felt to be consistent with acute coronary syndrome and felt to be related more likely to hypoxemia and anemia (7) Hypokalemia: Code(s): E87.6 - Hypokalemia Status: Acute Assessment and Plan: Improved. Potassium 3.6 today. monitor serum potassium levels closely. Mag within normal limits. (8) Anxiety: Code(s): F41.9 - Anxiety disorder, unspecified Status: Acute Assessment and Plan: She is anxious related to being hospitalized. Continue home Celexa and Buspar Hydroxyzine as needed She will need to follow-up with her PCP to consider medication adjustment Subjective Date/time seen: 07/15/21 15:18 Interval history: Date of service: 07/15/2021 Leticia Mullins is a 70-year-old female with history of CHF, CKD, COPD who is seen in follow-up for acute on chronic respiratory failure. She is feeling very anxious today. She said this morning when she woke up she felt that she was wheezing more. She tried to walk to the ba
--- NOTE | 2021-07-15 16:40 | PM.PNNEP ---
Progress Note: A&P Assessment and Plan (1) Acute kidney injury: Code(s): N17.9 - Acute kidney failure, unspecified Status: Acute Assessment and Plan: resolving due to several issues: - prerenal azotemia - dehydration + insensible losses + continued lasix use SHACTOR - infection (pneumonia) - continued use of ARB therapy SHACTOR renal ultrasound noted urine electrolytes c/w with volume depletion CPK okay creatinine slowly improving follow trend of repeat labs and UOP (2) Chronic kidney disease, stage 4 (severe): Code(s): N18.4 - Chronic kidney disease, stage 4 (severe) Status: Chronic Assessment and Plan: she states that her last creatinine was 2.25mg/dl on her last visit with Dr. Mendoza (her primary contract loader) suspect it is due to cardiac and vascular disease along with age-related change (3) Community acquired pneumonia: Code(s): J18.9 - Pneumonia, unspecified organism Status: Acute Assessment and Plan: as noted by admission imaging as well as history on antibiotics cultures results noted (4) COPD (chronic obstructive pulmonary disease): Code(s): J44.9 - Chronic obstructive pulmonary disease, unspecified Status: Acute Assessment and Plan: likely complicating her pneumonia continue supportive therapy (oxygen, inhalers, nebulizer treatments...etc) Will continue to follow. Subjective Date/time seen: 07/15/21 16:40 Some issues with shortness of breath but seems to have been more induced by anxiety today; otherwise, her breathing is doing reasonably well in comparison to admission; no other acute issues/complaints voiced; no events overnight or earlier this AM. Exam Narrative: General: WD/WN female in NAD Heart: normal S1 and S2; no rub Lungs: better air entry noted Abdomen: soft, nontender, nondistended, positive bowel sounds Extremities: no cyanosis or clubbing; no edema Skin: no rash or nodules Objective Data Vital Signs Vital Signs: Vital Signs Temp Pulse Resp BP Pulse Ox 07/15/21 14:00 36.6 C 70 20 122/52 L 97 07/15/21 13:10 72 20 07/15/21 13:00 68 20 07/15/21 09:29 69 20 96 07/15/21 08:15 68 07/15/21 05:54 71 18 07/15/21 05:45 68 20 07/15/21 05:05 36.7 C 76 18 122/64 96 07/15/21 00:00 63 18 07/14/21 23:51 61 18 07/14/21 21:15 68 07/14/21 20:14 66 20 07/14/21 20:05 98 07/14/21 20:04 65 20 07/14/21 20:00 68 20 98 07/14/21 19:40 36.1 C L 71 18 140/54 L 96 Intake/Output Intake/Output: Intake & Output 07/12/21 07/13/21 07/14/21 07/15/21 23:59 23:59 23:59 23:59 Intake Total 1320 1460 1500 1800 Output Total 300 1300 1350 1400 Balance 1020 160 150 400 Meds/Results Medications: Active Medications Generic Name Dose Route Start Last Admin Trade Name Freq PRN Reason Stop Dose Admin Albuterol 2.5 mg 07/08/21 13:11 Albuterol Sulfate Neb 2.5 Mg/0.5 Ml Inh INHALATION QIDRT PRN Shortness Of Breath Or Wheezing Albuterol 5 mg 07/10/21 20:00 07/15/21 17:20 Albuterol Sulfate Neb 2.5 Mg/0.5 Ml Inh INHALATION 5 mg Q4HRT ERIC Administration Aspirin 81 mg 07/12/21 09:00 07/15/21 08:13 Aspirin 81 Mg Enteric Tablet PO 81 mg QAM ERIC Administration Budesonide/Formoterol Fumarate 2 puff 07/09/21 09:00 07/15/21 09:28 Budesonide/Form 160-4.5 Mcg (*Sp) INHALATION 2 puff DAILY ERIC Administration Buspirone HCl 2.5 mg/ 7.5 mg 07/08/21 17:00 07/15/21 16:56 Buspirone HCl 5 mg PO 7.5 mg BID ERIC Administration Carvedilol 6.25 mg 07/11/21 21:00 07/15/21 08:15 Carvedilol 6.25 Mg Tablet PO 6.25 mg Q12HR ERIC Administration Citalopram Hydrobromide 40 mg 07/09/21 09:00 07/15/21 12:22 Citalopram Hydrobromide 20 Mg Tablet PO 40 mg DAILY ERIC Administration Clopidogrel Bisulfate 75 mg 07/08/21 09:00 07/15/21
[2021-07-15] MEDS: SACUBITRIL/VALSARTAN 24-26 MG TABLET 1 TAB PO (20:29)
[2021-07-15] MEDS: QUEtiapine FUMARATE 25 MG TABLET PO (20:29)
[2021-07-15] MEDS: MIRTAZAPINE 30 MG TABLET PO (20:29)
[2021-07-16] VITALS (17 sets, daily range): BP systolic 103–117; BP diastolic 42–76; PULSE 58–89; RESP 18–20; TEMP 37–37.1; O2SAT 86–100
[2021-07-16] MEDS: ALBUTEROL SULFATE NEB 2.5 MG/0.5 ML INH 5 MG INHALATION ×4 (00:50→12:59)
[2021-07-16] MEDS: IPRATROPIUM BR 0.02% INH SOLN 0.5 MG/2.5 ML VIAL INHALATION ×4 (00:50→12:59)
[2021-07-16] MEDS: ACETAMINOPHEN 325 MG TABLET 650 MG PO (01:00)
[2021-07-16 06:09] LABS: Hematocrit 30.1 % (37.0-47.0); Hemoglobin 9.3 g/dL (12.0-15.0); Mean Corpuscular HGB Conc 30.9 g/dl (32-36); Mean Corpuscular Hemoglobin 27.8 pg (26-34); Mean Corpuscular Volume 89.9 fl (80-100); Mean Platelet Volume 10.3 fl (7.4-10.4); Platelet Count Result 252 k/mm3 (150-375); Red Blood Count 3.35 M/mm3 (4.2-5.4)
[2021-07-16 06:28] LABS: Anion Gap 9 mmol/L (8-16); Blood Urea Nitrogen 53 mg/dL (7-17); Calcium 8.2 mg/dL (8.4-10.2); Carbon Dioxide 25 mmol/L (22-30); Chloride 105 mmol/L (98-107); Estimated CRCL calculation 21 ml/min; Estimated Glomerular Filt Rate 23; Glucose 110 mg/dL (65-110); Potassium 3.6 mmol/L (3.4-5.0); Sodium 139 mmol/L (137-145)
[2021-07-16] MEDS: SUCRALFATE SUSP 100 MG/ML 10 ML UDC 1000 MG PO ×2 (06:44→11:39)
[2021-07-16] MEDS: hydrOXYzine HCL 25 MG TABLET 50 MG PO ×2 (09:42→13:58)
[2021-07-16] MEDS: ENOXAPARIN 30 MG/0.3 ML SYRINGE SUB-Q (09:42)
[2021-07-16] MEDS: busPIRone HCL 2.5 MG, busPIRone HCL 5 MG 7.5 MG PO (09:42)
[2021-07-16] MEDS: ASPIRIN 81 MG ENTERIC TABLET PO (09:43)
[2021-07-16] MEDS: carvediloL 6.25 MG TABLET PO (09:43)
[2021-07-16] MEDS: CITALOPRAM HYDROBROMIDE 20 MG TABLET 40 MG PO (09:45)
[2021-07-16] MEDS: CLOPIDOGREL BISULFATE 75 MG TABLET PO (09:45)
[2021-07-16] MEDS: guaiFENesin 12 HR 600 MG TABCR 1200 MG PO (09:45)
[2021-07-16] MEDS: CYANOCOBALAMIN 1,000 MCG TABLET 1000 MCG PO (09:45)
[2021-07-16] MEDS: SACUBITRIL/VALSARTAN 24-26 MG TABLET 1 TAB PO (09:46)
[2021-07-16] MEDS: ROFLUMILAST 500 MCG TABLET PO (09:46)
[2021-07-16] MEDS: ROSUVASTATIN 10 MG TABLET 20 MG PO (09:46)
[2021-07-16] MEDS: predniSONE 40 MG, predniSONE 10 MG 50 MG PO (09:46)
[2021-07-16] MEDS: PANTOPRAZOLE SODIUM IV 40 MG VIAL IV PUSH (09:46)
--- NOTE | 2021-07-16 11:19 | HOMEO2EVAL ---
Evaluation was performed at [facility] Home Oxygen Evaluation RC: Home Oxygen (O2) Evaluation Start: 07/15/21 15:16 Freq: ONCE Status: Active Protocol: RPE Activity Type Activity Date Activity User E-Sign Co-Sign Detail Recorded Client Recorded Date Recorded By Document 07/16/21 10:40 EDWARD [email or web address] 07/16/21 11:19 EDWARD Document 07/16/21 10:42 EDWARD [email or web address] 07/16/21 11:19 EDWARD Document 07/16/21 10:43 EDWARD [email or web address] 07/16/21 11:19 EDWARD Document 07/16/21 10:44 EDWARD [email or web address] 07/16/21 11:19 EDWARD Document 07/16/21 10:50 EDWARD [email or web address] 07/16/21 11:19 EDWARD Document 07/16/21 10:55 EDWARD [email or web address] 07/16/21 11:19 EDWARD 07/16/21 07/16/21 07/16/21 10:40 10:42 10:43 Home O2 Evaluation Test Phase Resting Resting Resting Oxygen Delivery Room Air Nasal Cannula Nasal Cannula Oxygen Flow Rate (L/min) 1 2 Pulse Oximetry (90-100 %) 86 L 86 L 87 L Pulse Rate (60-100 beats/min) 62 Home Oxygen Evaluation Comments Treatment Charges O2 Evaluation - Inpatient 07/16/21 07/16/21 07/16/21 10:44 10:50 10:55 Home O2 Evaluation Test Phase Resting Exercise Resting Oxygen Delivery Nasal Cannula Nasal Cannula Nasal Cannula Oxygen Flow Rate (L/min) 3 3 3 Pulse Oximetry (90-100 %) 93 95 96 Pulse Rate (60-100 beats/min) 89 60 Home Oxygen Evaluation Comments Home o2 at 3L at rest and with exertion Treatment Charges
--- NOTE | 2021-07-16 11:19 | PCRCNOTE ---
Home O2 eval completed. Pt requires 3 L at rest and with exertion. No changes in previous home o2 setting. Pt has portable O2 upon D/C arranged with family. No additional needs for set up with [facility].
--- NOTE | 2021-07-16 13:17 | PM.DS ---
DS: Admitting Diagnosis Discharge Date 07/16/2021 Admitting Diagnosis Acute on chronic respiratory failure DS: Discharge Diagnosis Discharge Diagnosis (1) Acute on chronic respiratory failure with hypoxia and hypercapnia: Code(s): J96.21 - Acute and chronic respiratory failure with hypoxia; J96.22 - Acute and chronic respiratory failure with hypercapnia Status: Acute Assessment and Plan: Requires 3 L per nasal cannula with rest and exertion at baseline. Chronic respiratory failure due to COPD. Acute worsening related to community-acquired pneumonia and COPD exacerbation. She is currently requiring 4 L per nasal cannula Continue supplemental O2 with goal saturation 90% or above. Wean to goal. She required up to 5 L per nasal cannula but was slowly weaned back to her baseline. Home O2 eval performed on 07/16/2021 and she remains at baseline 3 L with rest and exertion. Treatment for pneumonia and COPD as described below Continue with supportive care (2) Community acquired pneumonia: Code(s): J18.9 - Pneumonia, unspecified organism Status: Acute Assessment and Plan: CXR showed airspace opacities in the right perihilar region consistent with pneumonia. COVID and influenza negative. She completed 7 days of antibiotic therapy with ceftriaxone and azithromycin, discontinued on 07/14/2021 Supplemental O2 as above Supportive care to include bronchodilators, expectorants, antipyretics, and incentive spirometry. Cornet to help mobilize secretions Blood cultures negative Sputum culture negative Urine pneumococcal antigen negative. (3) COPD (chronic obstructive pulmonary disease): Code(s): J44.9 - Chronic obstructive pulmonary disease, unspecified Status: Acute Assessment and Plan: With diffuse wheezing, consistent with COPD exacerbation. Treated with IV Solu-Medrol which was slowly weaned and transitioned to p.o. prednisone 50 mg for 5 days. Albuterol and ipratropium nebs q6 during hospitalization Treated with antibiotics as above Continue daliresp and Symbicort inhalers. Albuterol inhaler as needed. (4) Chronic kidney disease, stage 4 (severe): Code(s): N18.4 - Chronic kidney disease, stage 4 (severe) Status: Chronic Assessment and Plan: Acute on chronic. Baseline GFR around 20. Creatinine increased up to 3.8 then trended back down. She was seen in consultation by nephrology Valsartan, furosemide, Entresto were held She is established with evening anchor Dr. Mendoza. Renal function returned back to baseline. She will follow-up with her evening anchor as an outpatient (5) Normocytic anemia: Code(s): D64.9 - Anemia, unspecified Status: Acute Assessment and Plan: H&H stable. No signs of blood loss and vitals remained stable Iron panel reviewed with adequate iron stores, low B12. Started on p.o. cyanocobalamin daily. (6) Elevated troponin: Code(s): R77.8 - Other specified abnormalities of plasma proteins Status: Acute Assessment and Plan: Evaluated by Cardiology. Not felt to be consistent with acute coronary syndrome and felt to be related more likely to hypoxemia and anemia (7) Hypokalemia: Code(s): E87.6 - Hypokalemia Status: Acute Assessment and Plan: Potassium was monitored and supplemented as needed. Mag within normal limits. (8) Anxiety: Code(s): F41.9 - Anxiety disorder, unspecified Status: Acute Assessment and Plan: She was anxious related to hospitalization Continue home Celexa Buspar increased to 10 mg b.i.d. She will need to follow-up with her PCP for further evaluation and management of medications (9) Pre-diabetes: Code(s): R73.03 - Prediabetes Status: Acute Assessment and Plan: Resting blood sugars noted to be slightly elevated, therefore A1c obtained and was 6.0, consistent with prediab
== END 2021-07-16 16:10 | disposition home or self-care (01) | DRG 193 ==
LOC: ANHED 01:28 → ANHIMU 02:20 → ANH3MED 07-12 00:11 → ANHIMU 07-17 12:32
PROVIDERS: Hospitalist; Internal Medicine; Internal Medicine Nephrology; Admitting Provider Internal Medicine; Emergency Provider Emergency Medicine; PCP Internal Medicine; Visit Provider Physician Assistant
DX: J18.9 Pneumonia, unspecified organism (principal); J96.21 Acute and chronic respiratory failure with hypoxia; J96.22 Acute and chronic respiratory failure with hypercapnia; N18.4 Chronic kidney disease, stage 4 (severe); N17.9 Acute kidney failure, unspecified; J43.9 Emphysema, unspecified; Z20.822 Contact with and (suspected) exposure to COVID-19; D64.9 Anemia, unspecified; E87.6 Hypokalemia; R73.03 Prediabetes; F41.9 Anxiety disorder, unspecified; I50.9 Heart failure, unspecified; E86.0 Dehydration; I25.10 Atherosclerotic heart disease of native coronary artery without angina pectoris; Z87.891 Personal history of nicotine dependence; Z95.5 Presence of coronary angioplasty implant and graft; Z99.81 Dependence on supplemental oxygen
CPT/HCPCS: 36415; 36600; 71045; 76770; 78580; 80048; 80053; 80069; 81001; 82550; 82570; 82607; 82728; 82746; 82805; 82948; 83036; 83540; 83550; 83605; 83735; 83880; 84156; 84300; 84484; 85025; 85027; 85610; 85730; 86738; 87040; 87070; 87205; 87426; 87804; 87899; 93005; 93306; 94002; 94618; 94640; 94667; 94668; 99285; A9270; A9540; C9113; C9803; G0378; J0456; J0696; J1644; J1650; J2405; J2920; J2930; J7030; J7512